=== PATIENT | male | born 1965 | race American Indian/Alaskan Native ===

== ENCOUNTER 2018-08-21 04:20 | Inpatient (IN) | payer SELFPAY ==
[2018-08-21] MEDS ORDERED: PROVENTIL IH ONE ×2 (04:41→05:00)
[2018-08-21] MEDS ORDERED: ATROVENT IH ONE ×2 (04:41→05:00)
[2018-08-21] MEDS ORDERED: BRETHINE ONE (04:42)
[2018-08-21] MEDS ORDERED: BRETHINE SUB-Q ONE (04:44)
--- NOTE | 2018-08-21 04:44 | Emergency Department Report ---
HPI - General Time Seen by Provider: 08/21/18 04:37 - HPI HPI: Room 23 The patient is a 52-year-old male presenting with chief complaint of shortness of breath. The patient has a history of asthma and CHF and states this evening he began feeling short of breath. EMS states patient was found to be hypoxic on arrival with sats in the 60s. Patient was placed on a nonrebreather and his SPO2 increased to 92%. Patient was diaphoretic with diffuse wheezing so he was administered Solu-Medrol 125 mg IV and magnesium sulfate by EMS. Upon arrival to the ED the patient was again diaphoretic, in respiratory extremis and hypoxic in the 60s on room air. Patient was immediately placed on BiPAP administered terbutaline 0.25 mg subcutaneous. Patient's SPO2 increased to 100% . Patient denies chest pain Location: Lungs Duration: [See above] Quality: [See above] Severity: [See above] Modifying factors: [see above] Context: [see above] Mode of transportation: [not driving] ED Past Medical Hx - Past Medical History Hx Hypertension: Yes Hx Congestive Heart Failure: Yes Hx Asthma: Yes - Surgical History Past Surgical History?: No - Family History Family history: no significant - Social History Smoking Status: Unknown if ever smoked ED Review of Systems ROS: Stated complaint: DIFFICULTY IN BREATHING Other details as noted in HPI Comment: Unobtainable due to pts medical conditions Constitutional: diaphoresis Respiratory: shortness of breath, wheezing Cardiovascular: denies: chest pain Physical Exam - Physical Exam Physical Exam: GENERAL: The patient is well-developed well-nourished male grossly diaphoretic and in respiratory extremis SPO2 approximate 60%. [] HEENT: Normocephalic. Atraumatic. Extraocular motions are intact. Patient has moist mucous membranes. NECK: Supple. Trachea midline CHEST/LUNGS: Diffuse tight wheezing, respiratory extremis. Unable to speak in complete sentences HEART/CARDIOVASCULAR: Regular. There is tachycardia. There is no gallop rub or murmur. ABDOMEN: Abdomen is soft, nontender. Patient has normal bowel sounds. There is no abdominal distention. SKIN: There is no rash. There is no edema. The patient is grossly diaphoretic NEURO: The patient is awake, alert, and oriented. The patient is cooperative. The patient is unable to speak in complete sentences MUSCULOSKELETAL:There is no evidence of acute injury. ED Course - Reevaluation(s) Reevaluation #1: 08/21/18 05:07 Patient looking much improved. SPO2 100% on BiPAP. Patient now complaining of some abdominal cramping ED Medical Decision Making - Lab Data Result diagrams: 08/21/18 04:45 08/21/18 04:45 Laboratory Tests 08/21/18 08/21/18 08/21/18 04:45 04:45 04:45 WBC 9.5 RBC 5.05 H Hgb 15.9 H Hct 50.4 H MCV 100 H MCH 32 MCHC 32 RDW 15.2 Lymph % (Auto) 45.7 H [place] % (Auto) 8.6 H Eos % (Auto) 2.3 Baso % (Auto) 1.4 Lymph # 4.4 [place] # 0.8 Eos # 0.2 Baso # 0.1 Seg Neutrophils % 42.0 Seg Neutrophils # 4.0 PT 13.8 INR 1.01 APTT 27.3 Sodium 143 Potassium 4.8 Chloride 101.8 Carbon Dioxide 27 Anion Gap 19 BUN 33 H Creatinine 1.5 Estimated GFR 60 BUN/Creatinine Ratio 22 Glucose 265 H Calcium 9.1 Total Bilirubin 0.60 AST 50 H ALT 38 Alkaline Phosphatase 83 Total Creatine Kinase 156 CK-MB (CK-2) 3.1 CK-MB (CK-2) Rel Index 1.9 Troponin T < 0.010 NT-Pro-B Natriuret Pep 1242 H Total Protein 7.6 Albumin 4.6 Albumin/Globulin Ratio 1.5 - EKG Data -: EKG Interpreted by Me EKG shows normal: sinus rhythm Rate: normal - EKG Data When compared to previous EKG there are: previous EKG unavailable Interpretation: nonspecific ST-T wave frank (T-wave inversion in lead aVL, V2) - Radiology Data Radiology results: report reviewed (chest x-ray), image reviewed (chest x-ray) interpreted by me: Chest [id number] patchy opacities. No pneumothorax [facility] [address] [place] [address] XRay Report Signed Patient: LELO PEREZ MR#: [id number] : 1965 Acct:[id number] Age/Sex: 52 / M ADM Date: 08/21/18 Loc: ED Attending Dr: Ordering Physician: MARTINA ARGUELLO MD Date of Service: 08/21/18 Procedure(s): XR chest 1V ap Accession Number(s): [id number] cc: MARTINA ARGUELLO MD Fluoro Time In Minutes: FINAL REPORT EXAM: XR CHEST 1V AP HISTORY: shortness of breath, hypoxia TECHNIQUE: AP portable view(s) of the chest obtained. PRIORS: None. FINDINGS: No mediastinal shift. Cardiac silhouette is near the upper limit of normal in size. No pneumothorax or effusion. Basilar predominant interstitial prominence and ill-defined opacities. No acute skeletal finding. IMPRESSION: Ill-defined bibasilar opacities and interstitial prominence may be due to edema, infection or atelectasis. Consider PA and lateral chest radiographic follow-up. Transcribed By: MB Dictated By: HEATHER LEO MD Electronically Authenticated By: HEATHER LEO MD Signed Date/Time: 08/21/18510 DD/ 0 TD/TT: 08/21/18510 - Differential Diagnosis acute asthma exacerbation, respiratory failure, CHF exacerbation Critical Care Time: Yes Critical care time in (mins) excluding proc time.: 30 Critical care attestation.: If time is entered above; I have spent that time in minutes in the direct care of this critically ill patient, excluding procedure time. ED Disposition Clinical Impression: Respiratory failure, Hypoxia, Acute asthma exacerbation, Hypertensive urgency Disposition: OP ADMIT IP TO THIS HOSP Is pt being admited?: Yes Does the pt Need Aspirin: Yes Condition: Serious Referrals: PRIMARY CARE, [Primary Care Provider] - 3-5 Days Time of Disposition: 05:43 (hospitalist paged (Dr. Judy Vickers))
[2018-08-21] MEDS ORDERED: APRESOLINE IV ONE (04:45)
[2018-08-21 05:05] LABS: Basophils # (Auto) 0.1 K/mm3 (0.0-0.1); Basophils % (Auto) 1.4 % (0.0-1.8); Eosinophils # (Auto) 0.2 K/mm3 (0.0-0.4); Eosinophils % (Auto) 2.3 % (0.0-4.3); Hematocrit 50.4 % (35.5-45.6); Hemoglobin 15.9 gm/dl (11.8-15.2); Lymphocytes # (Auto) 4.4 K/mm3 (1.2-5.4); Lymphocytes % (Auto) 45.7 % (13.4-35.0); Mean Corpuscular HGB Conc 32 % (32-34); Mean Corpuscular Hemoglobin 32 pg (28-32); Mean Corpuscular Volume 100 fl (84-94); Monocytes # (Auto) 0.8 K/mm3 (0.0-0.8); Monocytes % (Auto) 8.6 % (0.0-7.3); Red Blood Count 5.05 M/mm3 (3.65-5.03); Red Cell Distribution Width 15.2 % (13.2-15.2)
[2018-08-21] MEDS ORDERED: ZOFRAN IV ONE (05:09)
[2018-08-21] MEDS ORDERED: SUBLIMAZE IV ONE (05:09)
--- NOTE | 2018-08-21 05:12 | XRay Report ---
FINAL REPORT EXAM: XR CHEST 1V AP HISTORY: shortness of breath, hypoxia TECHNIQUE: AP portable view(s) of the chest obtained. PRIORS: None. FINDINGS: No mediastinal shift. Cardiac silhouette is near the upper limit of normal in size. No pneumothorax or effusion. Basilar predominant interstitial prominence and ill-defined opacities. No acute skeletal finding. IMPRESSION: Ill-defined bibasilar opacities and interstitial prominence may be due to edema, infection or atelectasis. Consider PA and lateral chest radiographic follow-up.
[2018-08-21] MEDS ORDERED: MORPHINE IV ONE (05:15)
[2018-08-21] MEDS ORDERED: LASIX IV ONE (05:15)
[2018-08-21 05:17] LABS: INR 1.01 (0.87-1.13)
[2018-08-21 05:18] LABS: Partial Thromboplastin Time 27.3 Sec. (24.2-36.6)
[2018-08-21] MEDS ORDERED: BENADRYL ONE (05:28)
[2018-08-21] MEDS ORDERED: BENADRYL IV ONE (05:29)
[2018-08-21 05:34] LABS: Creatine Kinase MB 3.1 ng/mL (0.0-4.0)
[2018-08-21 05:37] LABS: Alanine Aminotransferase 38 units/L (7-56); Albumin 4.6 g/dL (3.9-5); BUN/Creatinine Ratio 22; Blood Urea Nitrogen 33 mg/dL (9-20); Calcium 9.1 mg/dL (8.4-10.2); Hemolysis Index 18
[2018-08-21 05:43] LABS: Platelet Count 195 K/mm3 (140-440)
[2018-08-21] MEDS ORDERED: PROVENTIL IH PRN (06:48)
[2018-08-21] MEDS ORDERED: MOTRIN PO PRN (09:39)
[2018-08-21] MEDS ORDERED: MORPHINE IV PRN (09:39)
[2018-08-21] MEDS ORDERED: ZOFRAN IV PRN (09:39)
[2018-08-21] MEDS ORDERED: SODIUM CHLORIDE FLUSH SYRINGE 10 ML IV PRN (09:39)
[2018-08-21] MEDS ORDERED: DILAUDID IV PRN (09:39)
--- NOTE | 2018-08-21 09:39 | History and Physical Report ---
History of Present Illness Date of examination: 08/21/18 Date of admission: 08/21/18 06:47 Chief complaint: Increasing SOB for one day. History of present illness: GENIE: 52-year-old male presenting with chief complaint of shortness of breath since yesterday. The patient has a history of asthma and CHF and states he began feeling short of breath since yesterday evening. EMS states patient was found to be hypoxic on arrival with sats in the 60s. Patient was placed on a nonrebreather and his SPO2 increased to 92%. Patient was diaphoretic with diffuse wheezing so he was administered Solu-Medrol 125 mg IV and magnesium sulfate by EMS. Upon arrival to the ED the patient was again diaphoretic, in respiratory extremis and hypoxic in the 60s on room air. Patient was immediately placed on BiPAP administered terbutaline 0.25 mg subcutaneous. Patient's SPO2 increased to 100%. Patient denies chest pain.No fever or chills. Past Medical History Hx Hypertension: Yes Hx Congestive Heart Failure: Yes Hx Asthma: Yes Surgical History Past Surgical History?: No Family History Family history: no significant Social History Smoking Status: Unknown if ever smoked Review of Systems ROS: Stated complaint: DIFFICULTY IN BREATHING Other details as noted in HPI Comment: Unobtainable due to pts medical conditions Constitutional: diaphoresis Respiratory: shortness of breath, wheezing Cardiovascular: denies: chest pain 14 point review of systems done---other shin negative. Medications and Allergies Allergies Allergy/AdvReac Type Severity Reaction Status Date / Time No Known Allergies Allergy Unverified 08/21/18 04:41 Home Medications Medication Instructions Recorded Confirmed Last Taken Type Carvedilol 12.5 mg PO BID 08/21/18 08/21/18 Unknown History Furosemide [Lasix TAB] 40 mg PO DAILY 08/21/18 08/21/18 Unknown History Labetalol [Normodyne TAB] 20 mg PO BID 08/21/18 08/21/18 Unknown History Lisinopril [Zestril] 40 mg PO DAILY 08/21/18 08/21/18 Unknown History Prednisone [predniSONE (Marta) ER 20 mg PO DAILY 08/21/18 08/21/18 Unknown History TAB] Active Meds: Active Medications Albuterol (Proventil) 2.5 mg IH Q4HRT PRN PRN Reason: Wheezing Exam - Constitutional Vitals: Temp Pulse Resp BP Pulse Ox 96 H 14 151/73 92 08/21/18 09:01 08/21/18 09:01 08/21/18 09:01 08/21/18 09:01 General appearance: Present: severe distress, well-nourished - EENT Eyes: Present: PERRL ENT: hearing intact, clear oral mucosa - Neck Neck: Present: supple, normal ROM - Respiratory Respiratory effort: normal Respiratory: bilateral: diminished, rales, rhonchi - Cardiovascular Heart rate: 80 Rhythm: regular Heart Sounds: Present: S1 & S2. Absent: rub, click - Extremities Extremities: no ischemia, pulses intact, pulses symmetrical, No edema Peripheral Pulses: within normal limits - Abdominal General gastrointestinal: Present: soft, non-tender, non-distended, normal bowel sounds Male genitourinary: Present: normal - Rectal Rectal Exam: deferred - Integumentary Integumentary: Present: clear, warm, dry - Musculoskeletal Musculoskeletal: gait normal, strength equal bilaterally - Psychiatric Psychiatric: appropriate mood/affect, intact judgment & insight - Neurologic Neurologic: CNII-XII intact, moves all extremities - Allied Health Allied health notes reviewed: nursing Results - Labs CBC & Chem 7: 08/22/18 04:07 08/22/18 04:07 Labs: Laboratory Last Values WBC 9.5 K/mm3 (4.5-11.0) 08/21/18 04:45 RBC 5.05 M/mm3 (3.65-5.03) H 08/21/18 04:45 Hgb 15.9 gm/dl (11.8-15.2) H 08/21/18 04:45 Hct 50.4 % (35.5-45.6) H 08/21/18 04:45 MCV 100 fl (84-94) H 08/21/18 04:45 MCH 32 pg (28-32) 08/21/18 04:45 MCHC 32 % (32-34) 08/21/18 04:45 RDW 15.2 % (13.2-15.2) 08/21/18 04:45 Plt Count 195 K/mm3 (140-440) 08/21/18 04:45 Lymph % (Auto) 45.7 % (13.4-35.0) H 08/21/18 04:45 [place] % (Auto) 8.6 % (0.0-7.3) H 08/21/18 04:45 Eos % (Auto) 2.3 % (0.0-4.3) 08/21/18 04:45 Baso % (Auto) 1.4 % (0.0-1.8) 08/21/18 04:45 Lymph # 4.4 K/mm3 (1.2-5.4) 08/21/18 04:45 [place] # 0.8 K/mm3 (0.0-0.8) 08/21/18 04:45 Eos # 0.2 K/mm3 (0.0-0.4) 08/21/18 04:45 Baso # 0.1 K/mm3 (0.0-0.1) 08/21/18 04:45 Seg Neutrophils % 42.0 % (40.0-70.0) 08/21/18 04:45 Seg Neutrophils # 4.0 K/mm3 (1.8-7.7) 08/21/18 04:45 PT 13.8 Sec. (12.2-14.9) 08/21/18 04:45 INR 1.01 (0.87-1.13) 08/21/18 04:45 APTT 27.3 Sec. (24.2-36.6) 08/21/18 04:45 POC ABG pH 7.270 (7.35-7.45) L 08/21/18 05:44 POC ABG pCO2 55.5 (35-45) H 08/21/18 05:44 POC ABG pO2 345 (80-105) H 08/21/18 05:44 POC ABG HCO3 25.5 08/21/18 05:44 POC ABG Total CO2 27 08/21/18 05:44 POC ABG O2 Sat 100 08/21/18 05:44 POC ABG Base Excess -1 08/21/18 05:44 FiO2 100 % 08/21/18 05:44 Sodium 143 mmol/L (137-145) 08/21/18 04:45 Potassium 4.8 mmol/L (3.6-5.0) 08/21/18 04:45 Chloride 101.8 mmol/L (98-107) 08/21/18 04:45 Carbon Dioxide 27 mmol/L (22-30) 08/21/18 04:45 Anion Gap 19 mmol/L 08/21/18 04:45 BUN 33 mg/dL (9-20) H 08/21/18 04:45 Creatinine 1.5 mg/dL (0.8-1.5) 08/21/18 04:45 Estimated GFR 60 ml/min 08/21/18 04:45 BUN/Creatinine Ratio 22 % 08/21/18 04:45 Glucose 265 mg/dL (75-100) H 08/21/18 04:45 Calcium 9.1 mg/dL (8.4-10.2) 08/21/18 04:45 Total Bilirubin 0.60 mg/dL (0.1-1.2) 08/21/18 04:45 AST 50 units/L (5-40) H 08/21/18 04:45 ALT 38 units/L (7-56) 08/21/18 04:45 Alkaline Phosphatase 83 units/L (35-129) 08/21/18 04:45 Total Creatine Kinase 156 units/L (55-170) 08/21/18 04:45 CK-MB (CK-2) 3.1 ng/mL (0.0-4.0) 08/21/18 04:45 CK-MB (CK-2) Rel Index 1.9 (0-4) 08/21/18 04:45 Troponin T < 0.010 ng/mL (0.00-0.029) 08/21/18 04:45 NT-Pro-B Natriuret Pep 1242 pg/mL (0-900) H 08/21/18 04:45 Total Protein 7.6 g/dL (6.3-8.2) 08/21/18 04:45 Albumin 4.6 g/dL (3.9-5) 08/21/18 04:45 Albumin/Globulin Ratio 1.5 % 08/21/18 04:45 - Imaging and Cardiology EKG: report reviewed (99/min LVH Abnormal T waves ST elevation) Assessment and Plan Advance Directives: Yes (Full code) VTE prophylaxis?: Chemical Plan of care discussed with patient/family: Yes - Patient Problems (1) Respiratory failure with hypoxia Current Visit: Yes Status: Acute Qualifiers: Chronicity: acute Plan to address problem: Sec to Asthma and severe exacerbation IV Solumedrol IV abx and Duonebs RTC. Bipap if necessary. (2) Acute asthma exacerbation Current Visit: Yes Status: Acute Qualifiers: Asthma severity: severe Plan to address problem: As above (3) CHF (congestive heart failure) Current Visit: Yes Status: Acute Qualifiers: Heart failure type: combined systolic and diastolic Heart failure chronicity: acute on chronic Qualified Code(s): I50.43 - Acute on chronic combined systolic (congestive) and diastolic (congestive) heart failure Plan to address problem: Superimposed IV Lasix q12 and Kdur po q12 ECHO ordered (4) HTN (hypertension) Current Visit: Yes Status: Chronic Qualifiers: Hypertension type: essential hypertension Qualified Code(s): I10 - Essential (primary) hypertension Plan to address problem: COnt antihypertensives (5) DVT prophylaxis Current Visit: Yes Status: Acute Plan to address problem: On Lovenox and GI prophylaxis
[2018-08-21] MEDS ORDERED: NORMODYNE PO SCH ×2 (11:00→22:00)
[2018-08-21] MEDS: ZESTRIL PO SCH (11:27)
[2018-08-21] MEDS: LEVAQUIN 750MG/150ML 750 MG/150 ML BAG IV SCH (11:27)
[2018-08-21] MEDS: SOLU-Medrol IV SCH ×2 (11:28→21:45)
[2018-08-21] MEDS: SODIUM CHLORIDE FLUSH SYRINGE 10 ML IV SCH ×2 (11:28→21:51)
[2018-08-21] MEDS: PEPCID PO SCH ×2 (11:28→21:44)
[2018-08-21] MEDS ORDERED: DUONEB *Not for PRN Use IH SCH (12:00)
[2018-08-21] MEDS: K-DUR PO SCH ×2 (14:06→21:44)
[2018-08-21] MEDS: LASIX IV SCH (17:44)
[2018-08-21] MEDS: PERCOCET 5/325 PO PRN (17:46)
[2018-08-21] MEDS: DUONEB *Not for PRN Use IH SCH (20:25)
[2018-08-21] MEDS: NORMODYNE PO SCH (21:44)
[2018-08-22 04:41] LABS: Hematocrit 45.4 % (35.5-45.6); Hemoglobin 14.6 gm/dl (11.8-15.2); Mean Corpuscular HGB Conc 32 % (32-34); Mean Corpuscular Hemoglobin 31 pg (28-32); Mean Corpuscular Volume 97 fl (84-94); Platelet Count 152 K/mm3 (140-440); Red Blood Count 4.69 M/mm3 (3.65-5.03); Red Cell Distribution Width 14.7 % (13.2-15.2)
[2018-08-22 05:00] LABS: Alanine Aminotransferase 28 units/L (7-56); Albumin 4.1 g/dL (3.9-5); BUN/Creatinine Ratio 22; Blood Urea Nitrogen 24 mg/dL (9-20); Calcium 9.2 mg/dL (8.4-10.2); Hemolysis Index 8
[2018-08-22] MEDS: SOLU-Medrol IV SCH ×3 (05:25→21:56)
[2018-08-22] MEDS: LASIX IV SCH ×2 (05:25→17:52)
[2018-08-22] MEDS: TYLENOL PO PRN ×2 (05:39→19:27)
[2018-08-22 06:12] LABS: Basophils % (Manual) 0 % (0.0-1.8); Eosinophils % (Manual) 0 % (0.0-4.3); Total Cells Counted 100
[2018-08-22 06:13] LABS: Large Platelets 1+; Platelet Estimate Consistent w Auto; RBC Morphology Normal
[2018-08-22] MEDS: DUONEB *Not for PRN Use IH SCH ×3 (07:50→20:24)
--- NOTE | 2018-08-22 10:51 | Progress Note ---
Assessment and Plan - Patient Problems (1) Respiratory failure with hypoxia Current Visit: Yes Status: Acute Qualifiers: Chronicity: acute Plan to address problem: Sec to Asthma and severe exacerbation IV Solumedrol IV abx and Duonebs RTC. Bipap if necessary. (2) Acute asthma exacerbation Current Visit: Yes Status: Acute Qualifiers: Asthma severity: severe Plan to address problem: As above (3) CHF (congestive heart failure) Current Visit: Yes Status: Acute Qualifiers: Heart failure type: combined systolic and diastolic Heart failure chronicity: acute on chronic Qualified Code(s): I50.43 - Acute on chronic combined systolic (congestive) and diastolic (congestive) heart failure Plan to address problem: Superimposed IV Lasix q12 and Kdur po q12 ECHO ordered (4) HTN (hypertension) Current Visit: Yes Status: Chronic Qualifiers: Hypertension type: essential hypertension Qualified Code(s): I10 - Essential (primary) hypertension Plan to address problem: COnt antihypertensives (5) Hyperglycemia Current Visit: Yes Status: Acute Plan to address problem: Sec to solumedrol. Hba1c 5.4 no insulin at this time (6) DVT prophylaxis Current Visit: Yes Status: Acute Plan to address problem: On Lovenox and GI prophylaxis Subjective Date of service: 08/22/18 Principal diagnosis: Resp failure,CHF exacerbation,Asthma exacerbation Interval history: Significant improvement since yesterday Objective - Constitutional Vitals: Vital Signs - 12hr 08/22/18 08/22/18 08/22/18 00:54 05:41 07:51 Temperature 97.9 F 97.5 F L Pulse Rate 106 H 98 H Pulse Rate [ 110 H Posterior Bilateral Throughout] Respiratory 18 20 Rate Respiratory 18 Rate [Posterior Bilateral Throughout] Blood Pressure 148/98 144/91 O2 Sat by Pulse 96 95 Oximetry 08/22/18 08:00 Temperature Pulse Rate Pulse Rate [ 112 H Posterior Bilateral Throughout] Respiratory Rate Respiratory 18 Rate [Posterior Bilateral Throughout] Blood Pressure O2 Sat by Pulse Oximetry General appearance: Present: no acute distress, well-nourished - EENT Eyes: PERRL, EOM intact ENT: hearing intact, clear oral mucosa Ears: bilateral: normal - Neck Neck: supple, normal ROM - Respiratory Respiratory effort: normal Respiratory: bilateral: CTA - Breasts Breasts: normal - Cardiovascular Heart rate: 78 Rhythm: regular Heart Sounds: Present: S1 & S2. Absent: gallop, rub Extremities: no ischemia, pulses intact, No edema, normal color, Full ROM - Gastrointestinal General gastrointestinal: Present: soft, non-tender, non-distended, normal bowel sounds - Genitourinary Male genitourinary: normal - Integumentary Integumentary: clear, warm, dry - Musculoskeletal Musculoskeletal: 1, strength equal bilaterally - Neurologic Neurologic: moves all extremities - Psychiatric Psychiatric: memory intact, appropriate mood/affect, intact judgment & insight - Labs CBC & Chem 7: 08/22/18 04:07 08/22/18 04:07 Labs: Abnormal lab results 08/22/18 08/22/18 Range/Units 04:07 04:07 WBC 11.7 H (4.5-11.0) K/mm3 MCV 97 H (84-94) fl Seg Neuts % (Manual) 96.0 H (40.0-70.0) % Lymphocytes % (Manual) 2.0 L (13.4-35.0) % Seg Neutrophils # Man 11.2 H (1.8-7.7) K/mm3 Lymphocytes # (Manual) 0.2 L (1.2-5.4) K/mm3 BUN 24 H (9-20) mg/dL Glucose 158 H (75-100) mg/dL
[2018-08-22] MEDS: LEVAQUIN 750MG/150ML 750 MG/150 ML BAG IV SCH (11:04)
[2018-08-22] MEDS: K-DUR PO SCH ×2 (11:05→21:57)
[2018-08-22] MEDS: PEPCID PO SCH ×2 (11:06→21:57)
[2018-08-22] MEDS: ZESTRIL PO SCH (11:13)
[2018-08-22] MEDS: NORMODYNE PO SCH ×2 (11:14→21:57)
[2018-08-22] MEDS: SODIUM CHLORIDE FLUSH SYRINGE 10 ML IV SCH ×2 (11:16→21:58)
[2018-08-23] MEDS: SOLU-Medrol IV SCH ×2 (04:03→14:11)
[2018-08-23] MEDS: LASIX IV SCH (05:34)
[2018-08-23] MEDS: PERCOCET 5/325 PO PRN (05:39)
[2018-08-23] MEDS: DUONEB *Not for PRN Use IH SCH (07:51)
[2018-08-23] MEDS: PEPCID PO SCH (10:17)
[2018-08-23] MEDS: LEVAQUIN 750MG/150ML 750 MG/150 ML BAG IV SCH (10:17)
[2018-08-23] MEDS: NORMODYNE PO SCH (10:17)
[2018-08-23] MEDS: ZESTRIL PO SCH (10:17)
[2018-08-23] MEDS: SODIUM CHLORIDE FLUSH SYRINGE 10 ML IV SCH (10:18)
[2018-08-23 12:24] VITALS: BP 149/97
--- NOTE | 2018-08-23 12:29 | Discharge Summary ---
Providers - Providers Date of Admission: 08/21/18 06:47 Date of discharge: 08/23/18 Attending physician: TATE ORTIZ Primary care physician: S[employer]IOR [employer] PRO[employer] MANAGER Hospitalization Reason for admission: Respiratory failure with hypoxia, acute asthma exacerbation, acute CHF exac Condition: Stable Hospital course: FINAL DIAGNOSIS -Acute Respiratory failure with hypoxia -Acute asthma exacerbation -Sepsis probably secondary to pneumonia -Acute on chronic systolic heart failure with EF of 45-50% -Hypertensive emergency with blood pressure of 212/111 secondary to medication noncompliance -Tobacco abuse In the ED B, patient received antihypertensives with some improvement in his blood pressure. On admission, he was continued on antihypertensives and placed on CHF protocol as well as IV steroids, nebulizer breathing treatments and IV antibiotic. Subsequently, he improved clinically and he was then deemed stable for discharge with clinic follow-up. On discharge, patient was counseled on tobacco cessation and he requested for nicotine patch for home. Disposition: DC- TO HOME OR SELFCARE Time spent for discharge: 35 minutes including counseling Core Measure Documentation - Palliative Care Palliative Care/ Comfort Measures: Not Applicable - Core Measures Any of the following diagnoses?: heart failure - Heart Failure Discharge Requirements RONAK/ARB for LVSD if EF <40%: Yes Beta marcia at discharge: Yes Exam - Constitutional Vitals: Temp Pulse Resp BP Pulse Ox 98.6 F 98 H 16 149/97 96 08/23/18 12:22 08/23/18 12:22 08/23/18 12:22 08/23/18 12:22 08/23/18 12:22 General appearance: Present: no acute distress, well-nourished - EENT Eyes: Present: PERRL, EOM intact ENT: hearing intact, clear oral mucosa - Neck Neck: Present: supple, normal ROM - Respiratory Respiratory effort: normal Respiratory: bilateral: CTA - Cardiovascular Rhythm: regular Heart Sounds: Present: S1 & S2. Absent: rub, click - Extremities Extremities: pulses symmetrical, No edema Peripheral Pulses: within normal limits - Abdominal General gastrointestinal: Present: soft, non-tender, non-distended, normal bowel sounds - Integumentary Integumentary: Present: clear, warm, dry - Musculoskeletal Musculoskeletal: gait normal, strength equal bilaterally - Psychiatric Psychiatric: appropriate mood/affect, intact judgment & insight - Neurologic Neurologic: CNII-XII intact, moves all extremities Plan Follow up with: PRIMARY CARE, [Primary Care Provider] - 3-5 Days Prescriptions: Carvedilol 25 mg PO BID #60 tablet levoFLOXacin [Levaquin TAB] 750 mg PO QDAY #5 tablet Lisinopril [Zestril] 40 mg PO DAILY #30 tablet Nicotine [Nicotine Patch] 1 each TD DAILY #30 patch.[id number]
[2018-08-23] MEDS ORDERED: DUONEB *Not for PRN Use IH SCH ×2 (20:00→22:00)
== END 2018-08-23 14:59 | disposition home or self-care (01) | DRG 871 ==
LOC: ED 04:20 → 4A 06:47
PROVIDERS: ADMIT Internal Medicine; ATTEND Internal Medicine
PROC: 4A033R1 Measurement of Arterial Saturation, Peripheral, Percutaneous Approach (ICD-10-PCS; principal; 2018-08-21)
PROC: 5A09357 Assistance with Respiratory Ventilation, Less than 24 Consecutive Hours, Continuous Positive Airway Pressure (ICD-10-PCS; 2018-08-21)
DX: A41.9 Sepsis, unspecified organism (principal); I50.43 Acute on chronic combined systolic (congestive) and diastolic (congestive) heart failure; J96.01 Acute respiratory failure with hypoxia; J18.9 Pneumonia, unspecified organism; J45.901 Unspecified asthma with (acute) exacerbation; I16.1 Hypertensive emergency; I11.0 Hypertensive heart disease with heart failure; I16.0 Hypertensive urgency; R73.9 Hyperglycemia, unspecified; Z79.899 Other long term (current) drug therapy; Z91.14 Patient's other noncompliance with medication regimen
CPT/HCPCS: 36415; 71045; 80053; 82550; 82553; 82803; 83036; 83880; 84484; 85007; 85025; 85610; 85730; 90472; 93005; 93010; 93306; 94640; 96374; 96375; 99406; J0360; J1200; J1940; J1956; J2270; J2405; J2930; J3010; J3105

== ENCOUNTER 2019-08-29 14:49 | Inpatient (IN) | payer OTHER ==
[2019-08-29] MEDS ORDERED: IPRATROPIUM 0.02% NEBU 2.5 ML IH ONE (14:57)
[2019-08-29] MEDS ORDERED: ALBUTEROL 2.5 MG/3 ML NEBU IH ONE (14:57)
[2019-08-29] MEDS ORDERED: methylPREDNISolone Sod Succinate 125 MG/2 ML INJ IV ONE (15:02)
[2019-08-29] MEDS ORDERED: cefTRIAXone/NS 1 GM/50 ML 1 GM/50 ML BAG IV ONE (15:02)
[2019-08-29] MEDS ORDERED: ASPIRIN 81 MG TAB CHEW PO ONE (15:02)
[2019-08-29] MEDS ORDERED: IPRATROPIUM/ALBUTEROL SULFATE 3 ML AMPUL.NEB IH ONE ×2 (15:03→21:16)
[2019-08-29] MEDS ORDERED: AZITHROMYCIN 500 MG in SODIUM CHLORIDE 0.9% 250ML 250 ML IV ONE (15:04)
[2019-08-29] MEDS ORDERED: dilTIAZem 25 MG/5 ML INJ IV ONE (15:43)
[2019-08-29] MEDS ORDERED: dilTIAZem 25 MG/5 ML INJ ONE (15:44)
--- NOTE | 2019-08-29 15:52 | XRay Report ---
CHEST 1 VIEW INDICATION: tachycardia. Acute dyspnea and respiratory distress COMPARISON: None FINDINGS: Support devices: None. Heart: Within normal limits. Lungs/Pleura: Mild interstitial edema. No pleural effusion. Additional findings: None. IMPRESSION: 1. Mild interstitial edema. Signer Name: Adalid Verma MD Signed: 08/29/2019 3:47 PM Workstation Name: [id number]
[2019-08-29 15:55] LABS: Basophils # (Auto) 0.1 K/mm3 (0.0-0.1); Basophils % (Auto) 1.7 % (0.0-1.8); Eosinophils # (Auto) 0.1 K/mm3 (0.0-0.4); Hematocrit 42.9 % (35.5-45.6); Hemoglobin 13.9 gm/dl (11.8-15.2); Lymphocytes # (Auto) 1.2 K/mm3 (1.2-5.4); Lymphocytes % (Auto) 13.9 % (13.4-35.0); Mean Corpuscular HGB Conc 33 % (32-34); Mean Corpuscular Volume 98 fl (84-94); Monocytes # (Auto) 0.5 K/mm3 (0.0-0.8); Monocytes % (Auto) 5.6 % (0.0-7.3); Platelet Count 154 K/mm3 (140-440); Red Cell Distribution Width 15.6 % (13.2-15.2)
[2019-08-29] MEDS ORDERED: ACETAMINOPHEN 325 MG TAB PO ONE (15:55)
[2019-08-29 16:29] LABS: Partial Thromboplastin Time 28.6 Sec. (24.2-36.6)
--- NOTE | 2019-08-29 16:50 | Emergency Department Report ---
ED Shortness of Breath HPI - General Chief Complaint: Dyspnea/Respdistress Stated Complaint: DIFFICULTY BREATHING Time Seen by Provider: 08/29/19 15:01 Source: patient, family Mode of arrival: Ambulatory Limitations: Physical Limitation (patient distress) - History of Present Illness MD Complaint: shortness of breath -: Gradual Severity: severe Pain Scale: 10 Consistency: other (worsening dyspnea) Improves With: bronchodilators Worsens With: exertion Known History Of: COPD, congestive heart failure Associated Symptoms: cough, sputum production, other (wheezing) - Related Data Previous Rx's Medication Instructions Recorded Last Taken Type AtorvaSTATin [Lipitor] 40 mg PO QHS #30 tab 10/16/18 Unknown Rx Carvedilol 25 mg PO BID #60 tablet 10/16/18 Unknown Rx DOXYCYCLINE Hyclate [Vibramycin 100 mg PO Q12HR #14 capsule 10/16/18 Unknown Rx CAP] Furosemide [Lasix TAB] 40 mg PO DAILY #30 tablet 10/16/18 Unknown Rx Lisinopril [Zestril] 40 mg PO DAILY #30 tablet 10/16/18 Unknown Rx Nicotine [Habitrol] 14 mg TD DAILY #30 patch 10/16/18 Unknown Rx Potassium Chloride 10 meq PO QDAY #30 capsule.er 10/16/18 Unknown Rx Warfarin [Coumadin] 7.5 mg PO QDAY #14 tablet 10/16/18 Unknown Rx guaiFENesin/DEXTROMETHORPHAN 1 each PO TID PRN #15 capsule 10/16/18 Unknown Rx [Robitussin Ljazk-Aqrgj-Vein Dm] hydrALAZINE [Apresoline TAB] 50 mg PO Q8HR #90 tablet 10/16/18 Unknown Rx predniSONE [Deltasone] 10 mg PO QDAY #16 tab 10/16/18 Unknown Rx Allergies Allergy/AdvReac Type Severity Reaction Status Date / Time No Known Allergies Allergy Unverified 08/21/18 04:41 ED Review of Systems ROS: Stated complaint: DIFFICULTY BREATHING Other details as noted in HPI Comment: Unobtainable due to pts medical conditions (patient distress) ED Past Medical Hx - Past Medical History Previous Medical History?: Yes Hx Hypertension: Yes Hx Congestive Heart Failure: Yes Hx Diabetes: No Hx Asthma: Yes Hx COPD: Yes Additional medical history: AFIB - Surgical History Past Surgical History?: No - Social History Smoking Status: Current Every Day Smoker Substance Use Type: None - Medications Home Medications: Home Medications Medication Instructions Recorded Confirmed Last Taken Type AtorvaSTATin [Lipitor] 40 mg PO QHS #30 tab 10/16/18 Unknown Rx Carvedilol 25 mg PO BID #60 tablet 10/16/18 Unknown Rx DOXYCYCLINE Hyclate [Vibramycin 100 mg PO Q12HR #14 capsule 10/16/18 Unknown Rx CAP] Furosemide [Lasix TAB] 40 mg PO DAILY #30 tablet 10/16/18 Unknown Rx Lisinopril [Zestril] 40 mg PO DAILY #30 tablet 10/16/18 Unknown Rx Nicotine [Habitrol] 14 mg TD DAILY #30 patch 10/16/18 Unknown Rx Potassium Chloride 10 meq PO QDAY #30 capsule.er 10/16/18 Unknown Rx Warfarin [Coumadin] 7.5 mg PO QDAY #14 tablet 10/16/18 Unknown Rx guaiFENesin/DEXTROMETHORPHAN 1 each PO TID PRN #15 capsule 10/16/18 Unknown Rx [Robitussin Lnpgl-Tzisl-Kapy Dm] hydrALAZINE [Apresoline TAB] 50 mg PO Q8HR #90 tablet 10/16/18 Unknown Rx predniSONE [Deltasone] 10 mg PO QDAY #16 tab 10/16/18 Unknown Rx ED Physical Exam - General Limitations: No Limitations - Other Other exam information: GENERAL: Patient in acute distress HEAD: Normocephalic, atraumatic EYES: PERRLA, EOM intact, no scleral icterus, no conjunctival hemorrhage, visual matos and acuity wnl NOSE: No tenderness, discharge, sinus tenderness MOUTH: No erythema, bleeding, exudate HEART: tachycardia irregular irregular, no murmur, S1-S2 are auscultated, no edema, pulses are symmetric LUNGS: Respiratory distress. Bilateral breath sounds, Tachypnea, retractions, wheezing, rales ABDOMEN: Normal bowel sounds, abdomen soft, no tenderness, no rebound, no guarding, no distention, no masses, no CVA tenderness MUSCULOSKELETAL: Normal joint range of motion, no redness, no swelling, no tenderness NEUROLOGIC: GCS 15, Alert and Oriented x3, Cranial nerves intact, normal sensation, normal strength, no cerebellar deficit, NIHSS 0 SKIN: Skin is warm and diaphoretic ED Course Vital Signs 08/29/19 08/29/19 08/29/19 14:50 14:53 15:06 Temperature 98.4 F Pulse Rate 130 H 130 H Pulse Rate [ Bilateral] Respiratory 30 H 30 H 24 Rate Respiratory Rate [Bilateral ] Blood Pressure 218/124 Blood Pressure 202/111 [Left] O2 Sat by Pulse 66 L 66 L 99 Oximetry 08/29/19 08/29/19 08/29/19 15:39 15:44 15:46 Temperature Pulse Rate 119 H 119 H Pulse Rate [ 35 L Bilateral] Respiratory 20 Rate Respiratory 19 Rate [Bilateral ] Blood Pressure 184/94 Blood Pressure 184/94 [Left] O2 Sat by Pulse 99 Oximetry 08/29/19 08/29/19 16:00 18:03 Temperature Pulse Rate 105 H 121 H Pulse Rate [ Bilateral] Respiratory 16 20 Rate Respiratory Rate [Bilateral ] Blood Pressure Blood Pressure 151/71 201/91 [Left] O2 Sat by Pulse 95 96 Oximetry ED Medical Decision Making - Lab Data Result diagrams: 08/29/19 15:26 08/29/19 15:26 Laboratory Results - last 24 hr 08/29/19 08/29/19 08/29/19 15:26 15:26 15:26 WBC 8.3 RBC 4.40 Hgb 13.9 Hct 42.9 MCV 98 H MCH 32 MCHC 33 RDW 15.6 H Plt Count 154 Lymph % (Auto) 13.9 [place] % (Auto) 5.6 Eos % (Auto) 1.0 Baso % (Auto) 1.7 Lymph # 1.2 [place] # 0.5 Eos # 0.1 Baso # 0.1 Seg Neutrophils % 77.8 H Seg Neutrophils # 6.5 PT INR APTT Lactic Acid 3.60 H* Magnesium 2.10 Troponin T < 0.010 NT-Pro-B Natriuret Pep 1693 H 08/29/19 15:26 WBC RBC Hgb Hct MCV MCH MCHC RDW Plt Count Lymph % (Auto) [place] % (Auto) Eos % (Auto) Baso % (Auto) Lymph # [place] # Eos # Baso # Seg Neutrophils % Seg Neutrophils # PT 13.1 INR 1.00 APTT 28.6 Lactic Acid Magnesium Troponin T NT-Pro-B Natriuret Pep - EKG Data When compared to previous EKG there are: changes noted Interpretation: other (A. fib with RVR) - Radiology Data Radiology results: report reviewed - Medical Decision Making Patient comfortable. Reports symptom improvement. Updated with results. Plan admit for further evaluation. Hospitalist updated and accepts admission. Critical Care Time: Yes Critical care time in (mins) excluding proc time.: 42 Critical care attestation.: If time is entered above; I have spent that time in minutes in the direct care of this critically ill patient, excluding procedure time. 42 ED Disposition Clinical Impression: Acute hypoxemic respiratory failure, COPD exacerbation, Atrial fibrillation with rapid ventricular response, Noncompliance with medication regimen CHF exacerbation Qualifiers: Heart failure type: unspecified Qualified Code(s): I50.9 - Heart failure, unspecified Disposition: OP ADMIT IP TO THIS HOSP Is pt being admited?: Yes Condition: Stable Instructions: Chronic Obstructive Pulmonary Disease (ED) Referrals: PRIMARY CAREMD [Primary Care Provider] - 3-5 Days Time of Disposition: 17:38
[2019-08-29 17:30] LABS: Calcium 9.1 mg/dL (8.4-10.2)
[2019-08-29] MEDS ORDERED: FUROSEMIDE 40 MG/4 ML INJ IV ONE (17:36)
[2019-08-29] MEDS ORDERED: ACETAMINOPHEN 325 MG TAB PO PRN ×3 (17:38→20:17)
[2019-08-29] MEDS ORDERED: ONDANSETRON 4 MG/2 ML INJ IV PRN ×3 (17:38→20:17)
[2019-08-29] MEDS ORDERED: ENOXAPARIN 120 MG/0.8 ML INJ SUB-Q ONE (18:00)
[2019-08-29] MEDS ORDERED: hydrALAZINE 20 MG/1 ML INJ ONE (19:14)
[2019-08-29] MEDS ORDERED: hydrALAZINE 20 MG/1 ML INJ IV ONE (19:15)
[2019-08-29] MEDS ORDERED: hydrALAZINE 20 MG/1 ML INJ IV PRN (19:34)
--- NOTE | 2019-08-29 19:47 | History and Physical Report ---
History of Present Illness Date of examination: 08/29/19 Date of admission: 08/29/19 17:39 Chief complaint: Increasing shortness of breath for 3 days History of present illness: 53-year-old -[place] male with history of hypertension, congestive heart failure, hyperlipidemia and nicotine dependence comes in for increasing shortness of breath of 3-4 days duration and uncontrolled hypertension. Patient has not been taking his medications regularly. Also no regular follow-ups. Some palpitations present. No chest pain. Patient has class IV NYHA symptoms. Orthopnea present. No recent travel. Patient also has a history of COPD secondary to smoking. Past Medical History Previous Medical History?: Yes Hypertension: Yes Congestive Heart Failure: Yes Asthma: Yes COPD: Yes Additional medical history: AFIB Surgical History Past Surgical History?: No Social History YSmoking Status: Current Every Day Smoker Substance Use Type: None Family History Htn - Medications Home Medications: Home Medications Medication Instructions Recorded Confirmed Last Taken Type AtorvaSTATin [Lipitor] 40 mg PO QHS #30 tab 10/16/18 Unknown Rx Carvedilol 25 mg PO BID #60 tablet 10/16/18 Unknown Rx DOXYCYCLINE Hyclate [Vibramycin 100 mg PO Q12HR #14 capsule 10/16/18 Unknown Rx CAP] Furosemide [Lasix TAB] 40 mg PO DAILY #30 tablet 10/16/18 Unknown Rx Lisinopril [Zestril] 40 mg PO DAILY #30 tablet 10/16/18 Unknown Rx Nicotine [Habitrol] 14 mg TD DAILY #30 patch 10/16/18 Unknown Rx Potassium Chloride 10 meq PO QDAY #30 capsule.er 10/16/18 Unknown Rx Warfarin [Coumadin] 7.5 mg PO QDAY #14 tablet 10/16/18 Unknown Rx guaiFENesin/DEXTROMETHORPHAN 1 each PO TID PRN #15 capsule 10/16/18 Unknown Rx [Robitussin Dxvzq-Dzhsr-Zgmb Dm] hydrALAZINE [Apresoline TAB] 50 mg PO Q8HR #90 tablet 10/16/18 Unknown Rx predniSONE [Deltasone] 10 mg PO QDAY #16 tab 10/16/18 Unknown Rx Medications and Allergies Allergies Allergy/AdvReac Type Severity Reaction Status Date / Time No Known Allergies Allergy Unverified 08/21/18 04:41 Home Medications Medication Instructions Recorded Confirmed Last Taken Type AtorvaSTATin [Lipitor] 40 mg PO QHS #30 tab 10/16/18 Unknown Rx Carvedilol 25 mg PO BID #60 tablet 10/16/18 Unknown Rx DOXYCYCLINE Hyclate [Vibramycin 100 mg PO Q12HR #14 capsule 10/16/18 Unknown Rx CAP] Furosemide [Lasix TAB] 40 mg PO DAILY #30 tablet 10/16/18 Unknown Rx Lisinopril [Zestril] 40 mg PO DAILY #30 tablet 10/16/18 Unknown Rx Nicotine [Habitrol] 14 mg TD DAILY #30 patch 10/16/18 Unknown Rx Potassium Chloride 10 meq PO QDAY #30 capsule.er 10/16/18 Unknown Rx Warfarin [Coumadin] 7.5 mg PO QDAY #14 tablet 10/16/18 Unknown Rx guaiFENesin/DEXTROMETHORPHAN 1 each PO TID PRN #15 capsule 10/16/18 Unknown Rx [Robitussin Izqpj-Vipol-Fxqs Dm] hydrALAZINE [Apresoline TAB] 50 mg PO Q8HR #90 tablet 10/16/18 Unknown Rx predniSONE [Deltasone] 10 mg PO QDAY #16 tab 10/16/18 Unknown Rx Active Meds: Active Medications Acetaminophen (Tylenol) 650 mg PO Q4H PRN PRN Reason: Pain MILD(1-3)/Fever >100.5/GARCIA Hydralazine HCl (Apresoline) 10 mg IV Q2H PRN PRN Reason: Blood Pressure Nicardipine HCl 50 mg/ Sodium (Chloride) 250 mls @ 25 mls/hr IV TITR REENA; Protocol Ondansetron HCl (Zofran) 4 mg IV Q8H PRN PRN Reason: Nausea And Vomiting Sodium Chloride (Sodium Chloride Flush Syringe 10 Ml) 10 ml IV BID REENA Sodium Chloride (Sodium Chloride Flush Syringe 10 Ml) 10 ml IV PRN PRN PRN Reason: LINE FLUSH Review of Systems All systems: negative Ears, nose, mouth and throat: no ear pain, no ear discharge, no tinnitis, no decreased hearing, no nose pain, no nasal congestion Cardiovascular: edema, shortness of breath, dyspnea on exertion, paroxysmal nocturnal dyspnea, high blood pressure Respiratory: dyspnea on exertion Gastrointestinal: no abdominal pain, no nausea, no vomiting, no diarrhea, no constipation, no change in bowel habits, no hematemesis, no coffee ground emesis Genitourinary Male: no dysuria, no hematuria, no flank pain, no discharge, no urinary frequency, no urinary hesitancy, no nocturia, no incontinence, no erectile dysfunction, no genital pain Rectal: no pain Musculoskeletal: no neck stiffness, no neck pain, no shooting arm pain, no arm numbness/tingling, no low back pain, no shooting leg pain, no leg numbness/tingling, no redness of joints Integumentary: no rash, no pruritis, no redness, no sores, no wounds, no jaundice, no boils, no blisters Neurological: no syncope, no tremors Psychiatric: no anxiety, no memory loss, no change in sleep habits, no sleep disturbances, no insomnia, no hypersomnia, no change in appetite, no change in libido, no suicidal ideation, no disorientation, no hallucinations Endocrine: no cold intolerance, no heat intolerance, no polyphagia, no excessive thirst, no polydipsia, no polyuria, no nocturia, no excessive sweating, no flushing, no weight change Hematologic/Lymphatic: no easy bruising, no easy bleeding Allergic/Immunologic: no urticaria, no allergic rhinitis, no wheezing Exam - Constitutional Vitals: Temp Pulse Resp BP Pulse Ox 98.4 F 104 H 18 230/134 98 08/29/19 14:53 08/29/19 19:24 08/29/19 19:24 08/29/19 19:24 08/29/19 19:24 General appearance: Present: mild distress, well-nourished - EENT Eyes: Present: PERRL ENT: hearing intact, clear oral mucosa - Neck Neck: Present: supple, normal ROM - Respiratory Respiratory effort: normal Respiratory: bilateral: CTA - Cardiovascular Heart rate: 129 Rhythm: irregularly irregular Heart Sounds: Present: S1 & S2. Absent: rub, click - Extremities Extremities: no ischemia, pulses intact, pulses symmetrical, No edema Peripheral Pulses: within normal limits - Abdominal General gastrointestinal: Present: soft, non-tender, non-distended, normal bowel sounds Male genitourinary: Present: normal - Rectal Rectal Exam: deferred - Integumentary Integumentary: Present: clear, warm, dry - Musculoskeletal Musculoskeletal: gait normal, strength equal bilaterally - Psychiatric Psychiatric: appropriate mood/affect, intact judgment & insight - Neurologic Neurologic: CNII-XII intact, moves all extremities - Allied Health Allied health notes reviewed: nursing, case management Results - Labs CBC & Chem 7: 08/29/19 15:26 08/29/19 15:26 Labs: Laboratory Last Values WBC 8.3 K/mm3 (4.5-11.0) 08/29/19 15: RBC 4.40 M/mm3 (3.65-5.03) 08/29/19 15: Hgb 13.9 gm/dl (11.8-15.2) 08/29/19 15: Hct 42.9 % (35.5-45.6) 08/29/19 15: MCV 98 fl (84-94) H 08/29/19 15: MCH 32 pg (28-32) 08/29/19 15: MCHC 33 % (32-34) 08/29/19 15: RDW 15.6 % (13.2-15.2) H 08/29/19 15: Plt Count 154 K/mm3 (140-440) 08/29/19 15:26 Lymph % (Auto) 13.9 % (13.4-35.0) 08/29/19 15:26 [place] % (Auto) 5.6 % (0.0-7.3) 08/29/19 15: Eos % (Auto) 1.0 % (0.0-4.3) 08/29/19 15: Baso % (Auto) 1.7 % (0.0-1.8) 08/29/19 15: Lymph # 1.2 K/mm3 (1.2-5.4) 08/29/19 15: [place] # 0.5 K/mm3 (0.0-0.8) 08/29/19 15: Eos # 0.1 K/mm3 (0.0-0.4) 08/29/19 15: Baso # 0.1 K/mm3 (0.0-0.1) 08/29/19 15:26 Seg Neutrophils % 77.8 % (40.0-70.0) H 08/29/19 15: Seg Neutrophils # 6.5 K/mm3 (1.8-7.7) 08/29/19 15:26 PT 13.1 Sec. (12.2-14.9) 08/29/19 15:26 INR 1.00 (0.87-1.13) 08/29/19 15:26 APTT 28.6 Sec. (24.2-36.6) 08/29/19 15:26 Sodium 144 mmol/L (137-145) 08/29/19 15:26 Potassium 4.2 mmol/L (3.6-5.0) 08/29/19 15:26 Chloride 108.2 mmol/L (98-107) H 08/29/19 15:26 Carbon Dioxide 17 mmol/L (22-30) L 08/29/19 15:26 Anion Gap 23 mmol/L 08/29/19 15:26 BUN 16 mg/dL (9-20) 08/29/19 15:26 Creatinine 1.6 mg/dL (0.8-1.5) H 08/29/19 15:26 Estimated GFR 55 ml/min 08/29/19 15:26 BUN/Creatinine Ratio 10 % 08/29/19 15:26 Glucose 154 mg/dL (75-100) H 08/29/19 15:26 Lactic Acid 1.50 mmol/L (0.7-2.0) 08/29/19 16:49 Calcium 9.1 mg/dL (8.4-10.2) 08/29/19 15:26 Magnesium 2.10 mg/dL (1.7-2.3) 08/29/19 15:26 Troponin T < 0.010 ng/mL (0.00-0.029) 08/29/19 15:26 NT-Pro-B Natriuret Pep 1693 pg/mL (0-900) H 08/29/19 15:26 Short CBC 08/29/19 Range/Units 15:26 WBC 8.3 (4.5-11.0) K/mm3 Hgb 13.9 (11.8-15.2) gm/dl Hct 42.9 (35.5-45.6) % Plt Count 154 (140-440) K/mm3 BMP 08/29/19 15:26 Sodium 144 Potassium 4.2 Chloride 108.2 H Carbon Dioxide 17 L BUN 16 Creatinine 1.6 H Glucose 154 H Calcium 9.1 Cardiac Enzymes 08/29/19 Range/Units 15:26 Troponin T < 0.010 (0.00-0.029) ng/mL - Imaging and Cardiology EKG: report reviewed (atrial fibrillation, heart rate of 1 28/m ventricular premature complexes LVH by voltage criteria) Chest x-ray: report reviewed (mild interstitial edema) Assessment and Plan Assessment and plan: Critical care time 30 minutes Advance Directives: Yes (full code) VTE prophylaxis?: Chemical Plan of care discussed with patient/family: Yes - Patient Problems (1) Hypertensive emergency Current Visit: Yes Status: Acute Plan to address problem: Blood pressure 240/140 IV hydralazine and every 2 hours initiated but could not be controlled Cardene drip started Also his home antihypertensive started which includes hydralazine losartan amlodipine and Coreg Patient has history of noncompliance Patient counseled about compliance (2) Acute exacerbation of CHF (congestive heart failure) Current Visit: Yes Status: Acute Qualifiers: Heart failure type: diastolic Qualified Code(s): I50.33 - Acute on chronic diastolic (congestive) heart failure Plan to address problem: Patient initiated on IV Lasix 40 mg every 12 Echocardiogram ordered for ejection fraction and valve function Cardiology consult requested by Dr. Bryan who was economics consultant (3) Atrial fibrillation with rapid ventricular response Current Visit: Yes Status: Acute Plan to address problem: Patient initiated on IV Cardizem at 5 mg per hour (4) COPD (chronic obstructive pulmonary disease) Current Visit: Yes Status: Chronic Qualifiers: COPD type: unspecified COPD Qualified Code(s): J44.9 - Chronic obstructive pulmonary disease, unspecified Plan to address problem: Continue duo nebs No exacerbation Patient counseled to stop smoking (5) Nicotine dependence Current Visit: Yes Status: Chronic Qualifiers: Nicotine product type: cigarettes Plan to address problem: Patient counseled about stopping smoking and nicoderm patch initiated (6) DVT prophylaxis Current Visit: No Status: Acute Plan to address problem: On Lovenox and GI prophylaxis
[2019-08-29] MEDS: HYDROmorphone 1 MG/1 ML INJ IV PRN ×2 (20:10→23:20)
[2019-08-29] MEDS: niCARdipine 50 MG in SODIUM CHLORIDE 0.9% 250ML 230 ML IV SCH (20:17)
[2019-08-29] MEDS ORDERED: HYDROmorphone 1 MG/1 ML INJ ONE ×2 (20:24→23:02)
[2019-08-29] MEDS: IPRATROPIUM/ALBUTEROL SULFATE 3 ML AMPUL.NEB IH SCH (20:50)
[2019-08-29] MEDS: LISINOPRIL 40 MG TAB PO SCH (21:18)
[2019-08-29] MEDS: WARFARIN 7.5 MG TAB PO SCH (21:18)
[2019-08-29] MEDS: NICOTINE 14 MG/24 HR PATCH TD SCH (21:18)
[2019-08-29] MEDS ORDERED: oxyCODONE /ACETAMINOPHEN 5-325MG TAB ONE (21:23)
[2019-08-29] MEDS: oxyCODONE /ACETAMINOPHEN 5-325MG TAB PO PRN (21:24)
[2019-08-29] MEDS ORDERED: dilTIAZem/D5W 100 MG/100 ML BAG IV SCH (22:00)
[2019-08-29] MEDS ORDERED: FAMOTIDINE 20 MG TAB ONE (22:21)
[2019-08-29] MEDS ORDERED: POTASSIUM CHLORIDE ER 20 MEQ TAB PO ONE (22:22)
[2019-08-29] MEDS ORDERED: CARVEDILOL 25 MG TAB ONE (22:22)
[2019-08-29] MEDS ORDERED: hydrALAZINE 25 MG TAB ONE (22:24)
[2019-08-29] MEDS: FAMOTIDINE 20 MG TAB PO SCH (22:28)
[2019-08-29] MEDS: POTASSIUM CHLORIDE ER 20 MEQ TAB PO SCH (22:28)
[2019-08-29] MEDS: CARVEDILOL 25 MG TAB PO SCH (22:28)
[2019-08-29] MEDS: hydrALAZINE 25 MG TAB PO SCH (22:29)
[2019-08-30] MEDS: niCARdipine 50 MG in SODIUM CHLORIDE 0.9% 250ML 230 ML IV SCH ×3 (02:01→12:28)
[2019-08-30 05:45] LABS: Hematocrit 40.5 % (35.5-45.6); Hemoglobin 13.4 gm/dl (11.8-15.2); Mean Corpuscular HGB Conc 33 % (32-34); Mean Corpuscular Volume 95 fl (84-94); Platelet Count 131 K/mm3 (140-440); Red Blood Count 4.24 M/mm3 (3.65-5.03); Red Cell Distribution Width 15.5 % (13.2-15.2)
[2019-08-30 05:59] LABS: INR 1.12 (0.87-1.13)
[2019-08-30] MEDS ORDERED: FUROSEMIDE 40 MG/4 ML INJ IV SCH (06:00)
[2019-08-30 06:08] LABS: Alanine Aminotransferase 15 units/L (7-56); Albumin 4.3 g/dL (3.9-5); BUN/Creatinine Ratio 16; Blood Urea Nitrogen 21 mg/dL (9-20); Calcium 9.6 mg/dL (8.4-10.2); Hemolysis Index 3
[2019-08-30] MEDS ORDERED: FUROSEMIDE 40 MG/4 ML INJ ONE (06:54)
[2019-08-30] MEDS ORDERED: hydrALAZINE 25 MG TAB ONE ×2 (06:55→13:24)
[2019-08-30] MEDS: hydrALAZINE 25 MG TAB PO SCH ×3 (06:58→22:46)
[2019-08-30] MEDS: FUROSEMIDE 40 MG/4 ML INJ IV SCH ×2 (06:59→18:47)
[2019-08-30 07:21] LABS: Anisocytosis 1+; Eosinophils % (Manual) 0 % (0.0-4.3); Macrocytosis Few; Ovalocytes Few; Total Cells Counted 100
[2019-08-30 07:22] LABS: Large Platelets Few; Platelet Estimate Consistent w Auto; Stomatocytes Rare
[2019-08-30] MEDS ORDERED: HYDROmorphone 1 MG/1 ML INJ ONE ×2 (07:53→15:32)
[2019-08-30] MEDS: HYDROmorphone 1 MG/1 ML INJ IV PRN ×2 (07:56→15:34)
--- NOTE | 2019-08-30 08:46 | Progress Note ---
Assessment and Plan Assessment and plan: Patient is a 53-year-old -[place] man with history of afib/aflutter s/p ablation, hypertension, congestive heart failure, hyperlipidemia and nicotine dependence comes in for increasing shortness of breath of 3-4 days duration and uncontrolled hypertension. Patient has not been taking his medications regularly. Also no regular follow-ups. Some palpitations present. No chest pain. Patient has class IV NYHA symptoms. Orthopnea present. No recent travel. Patient also has a history of COPD secondary to smoking. 08/21/2018 TTE with est EF 45-50%, mild MR (1) Hypertensive emergency Current Visit: Yes Status: Acute Plan to address problem: Blood pressure was 240/140 IV hydralazine and every 2 hours initiated but could not be controlled, so Cardene drip started Also his home antihypertensive started which includes hydralazine losartan amlodipine and Coreg Patient has history of noncompliance Patient counseled about compliance (2) Acute exacerbation of CHF (congestive heart failure) Current Visit: Yes Status: Acute Qualifiers: Heart failure type: diastolic Qualified Code(s): I50.33 - Acute on chronic systolic (congestive) heart failure Plan to address problem: Patient initiated on IV Lasix 40 mg every 12 Echocardiogram ordered for ejection fraction and valve function Cardiology consult requested by Dr. Bryan who was closer on (3) Atrial fibrillation with rapid ventricular response Current Visit: Yes Status: Acute Plan to address problem: Patient initiated on IV Cardizem at 5 mg per hour Cardiology to determine A/C (4) COPD (chronic obstructive pulmonary disease) Current Visit: Yes Status: Chronic Qualifiers: COPD type: unspecified COPD Qualified Code(s): J44.9 - Chronic obstructive pulmonary disease, unspecified Plan to address problem: Continue duo nebs No exacerbation Patient counseled to stop smoking (5) Nicotine dependence Current Visit: Yes Status: Chronic Qualifiers: Nicotine product type: cigarettes Plan to address problem: Patient counseled about stopping smoking and nicoderm patch initiated (6) DVT prophylaxis Current Visit: No Status: Acute Plan to address problem: On Lovenox and GI prophylaxis History Interval history: Patient was seen and examined. Follow-up on current diagnosis of CHF, malignant hypertension. No overnight events reported to me. Patient denies any chest pain, nausea/vomiting or severe headaches. Imaging, nursing note, chart, labs and old chart reviewed. Discussed with patient. Hospitalist Physical - Physical exam Narrative exam: Gen: WDWN, NAD, Awake, Alert, Orientated HEENT: NCAT, EOMI, PERRL, OP Clear Neck: supple, no adenopathy, no thyromegaly, no JVD CVS/Heart: irregular irregular normal S1S2, pulses present bilaterally Chest/Lungs: diminished bs bilaterally, Symmetrical chest expansion, good air entry bilaterally GI/Abdomen: soft, NTND, good bowel sounds, no guarding or rebound /Bladder: no suprapubic tenderness, no CVA or paraspinal tenderness Extermity/Skin: no c/c/e, no obvious rash MSK: FROM x 4 Neuro: CN 2-12 grossly intact, no new focal deficits Psych: calm - Constitutional Vitals: Temp Pulse Resp BP Pulse Ox 98.4 F 85 14 142/69 94 08/29/19 14:53 08/30/19 08:15 08/30/19 08:15 08/30/19 08:15 08/30/19 08:15 General appearance: Present: well-nourished Results - Labs CBC & Chem 7: 08/30/19 05:34 08/30/19 05:34 Labs: Laboratory Last Values WBC 7.5 K/mm3 (4.5-11.0) 08/30/19 05:34 RBC 4.24 M/mm3 (3.65-5.03) 08/30/19 05:34 Hgb 13.4 gm/dl (11.8-15.2) 08/30/19 05:34 Hct 40.5 % (35.5-45.6) 08/30/19 05:34 MCV 95 fl (84-94) H 08/30/19 05:34 MCH 32 pg (28-32) 08/30/19 05:34 MCHC 33 % (32-34) 08/30/19 05:34 RDW 15.5 % (13.2-15.2) H 08/30/19 05:34 Plt Count 131 K/mm3 (140-440) L 08/30/19 05:34 Lymph % (Auto) 13.9 % (13.4-35.0) 08/29/19 15:26 Simpson % (Auto) 5.6 % (0.0-7.3) 08/29/19 15:26 Eos % (Auto) 1.0 % (0.0-4.3) 08/29/19 15:26 Baso % (Auto) 1.7 % (0.0-1.8) 08/29/19 15:26 Lymph # 1.2 K/mm3 (1.2-5.4) 08/29/19 15:26 Simpson # 0.5 K/mm3 (0.0-0.8) 08/29/19 15:26 Eos # 0.1 K/mm3 (0.0-0.4) 08/29/19 15:26 Baso # 0.1 K/mm3 (0.0-0.1) 08/29/19 15:26 Add Manual Diff Complete 08/30/19 05:34 Total Counted 100 08/30/19 05:34 Seg Neutrophils % Linoleum Installer 08/30/19 05:34 Seg Neuts % (Manual) 89.0 % (40.0-70.0) H 08/30/19 05:34 Band Neutrophils % 0 % 08/30/19 05:34 Lymphocytes % (Manual) 8.0 % (13.4-35.0) L 08/30/19 05:34 Reactive Lymphs % (Man) 0 % 08/30/19 05:34 Monocytes % (Manual) 2.0 % (0.0-7.3) 08/30/19 05:34 Eosinophils % (Manual) 0 % (0.0-4.3) 08/30/19 05:34 Basophils % (Manual) 1.0 % (0.0-1.8) 08/30/19 05:34 Metamyelocytes % 0 % 08/30/19 05:34 Myelocytes % 0 % 08/30/19 05:34 Promyelocytes % 0 % 08/30/19 05:34 Blast Cells % 0 % 08/30/19 05:34 Nucleated RBC % Not Reportable 08/30/19 05:34 Seg Neutrophils # 6.5 K/mm3 (1.8-7.7) 08/29/19 15:26 Seg Neutrophils # Man 6.7 K/mm3 (1.8-7.7) 08/30/19 05:34 Band Neutrophils # 0.0 K/mm3 08/30/19 05:34 Lymphocytes # (Manual) 0.6 K/mm3 (1.2-5.4) L 08/30/19 05:34 Abs React Lymphs (Man) 0.0 K/mm3 08/30/19 05:34 Monocytes # (Manual) 0.2 K/mm3 (0.0-0.8) 08/30/19 05:34 Eosinophils # (Manual) 0.0 K/mm3 (0.0-0.4) 08/30/19 05:34 Basophils # (Manual) 0.1 K/mm3 (0.0-0.1) 08/30/19 05:34 Metamyelocytes # 0.0 K/mm3 08/30/19 05:34 Myelocytes # 0.0 K/mm3 08/30/19 05:34 Promyelocytes # 0.0 K/mm3 08/30/19 05:34 Blast Cells # 0.0 K/mm3 08/30/19 05:34 WBC Morphology Not Reportable 08/30/19 05:34 Hypersegmented Neuts Not Reportable 08/30/19 05:34 Hyposegmented Neuts Not Reportable 08/30/19 05:34 Hypogranular Neuts Not Reportable 08/30/19 05:34 Smudge Cells Not Reportable 08/30/19 05:34 Toxic Granulation Not Reportable 08/30/19 05:34 Toxic Vacuolation Not Reportable 08/30/19 05:34 Dohle Bodies Not Reportable 08/30/19 05:34 Pelger-Huet Anomaly Not Reportable 08/30/19 05:34 Kyara Rods Not Reportable 08/30/19 05:34 Platelet Estimate Consistent w auto 08/30/19 05:34 Clumped Platelets Not Reportable 08/30/19 05:34 Plt Clumps, EDTA Not Reportable 08/30/19 05:34 Large Platelets Few 08/30/19 05:34 Giant Platelets Not Reportable 08/30/19 05:34 Platelet Satelliting Not Reportable 08/30/19 05:34 Plt Morphology Comment Not Reportable 08/30/19 05:34 RBC Morphology Not Reportable 08/30/19 05:34 Dimorphic RBCs Not Reportable 08/30/19 05:34 Polychromasia Not Reportable 08/30/19 05:34 Hypochromasia Not Reportable 08/30/19 05:34 Poikilocytosis Not Reportable 08/30/19 05:34 Anisocytosis 1+ 08/30/19 05:34 Microcytosis Few 08/30/19 05:34 Macrocytosis Few 08/30/19 05:34 Spherocytes Not Reportable 08/30/19 05:34 Pappenheimer Bodies Not Reportable 08/30/19 05:34 Sickle Cells Not Reportable 08/30/19 05:34 Target Cells Not Reportable 08/30/19 05:34 Tear Drop Cells Not Reportable 08/30/19 05:34 Ovalocytes Few 08/30/19 05:34 Stomatocytes Rare 08/30/19 05:34 Helmet Cells Not Reportable 08/30/19 05:34 Dunaway-Currie Bodies Not Reportable 08/30/19 05:34 Bayard Rings Not Reportable 08/30/19 05:34 Kayenta Cells Not Reportable 08/30/19 05:34 Bite Cells Not Reportable 08/30/19 05:34 Crenated Cell Not Reportable 08/30/19 05:34 Elliptocytes Not Reportable 08/30/19 05:34 Acanthocytes (Spur) Not Reportable 08/30/19 05:34 Rouleaux Not Reportable 08/30/19 05:34 Hemoglobin C Crystals Not Reportable 08/30/19 05:34 Schistocytes Not Reportable 08/30/19 05:34 Malaria parasites Not Reportable 08/30/19 05:34 Aman Bodies Not Reportable 08/30/19 05:34 Hem Pathologist Commnt No 08/30/19 05:34 PT 14.3 Sec. (12.2-14.9) 08/30/19 05:34 INR 1.12 (0.87-1.13) 08/30/19 05:34 APTT 28.6 Sec. (24.2-36.6) 08/29/19 15:26 Sodium 144 mmol/L (137-145) 08/30/19 05:34 Potassium 4.3 mmol/L (3.6-5.0) 08/30/19 05:34 Chloride 106.5 mmol/L (98-107) 08/30/19 05:34 Carbon Dioxide 24 mmol/L (22-30) D 08/30/19 05:34 Anion Gap 18 mmol/L 08/30/19 05:34 BUN 21 mg/dL (9-20) H 08/30/19 05:34 Creatinine 1.3 mg/dL (0.8-1.5) 08/30/19 05:34 Estimated GFR > 60 ml/min 08/30/19 05:34 BUN/Creatinine Ratio 16 % 08/30/19 05:34 Glucose 144 mg/dL (75-100) H 08/30/19 05:34 Hemoglobin A1c 5.2 % (4-6) 08/29/19 15:26 Lactic Acid 1.50 mmol/L (0.7-2.0) 08/29/19 16:49 Calcium 9.6 mg/dL (8.4-10.2) 08/30/19 05:34 Magnesium 2.10 mg/dL (1.7-2.3) 08/29/19 15:26 Total Bilirubin 0.60 mg/dL (0.1-1.2) 08/30/19 05:34 AST 19 units/L (5-40) 08/30/19 05:34 ALT 15 units/L (7-56) 08/30/19 05:34 Alkaline Phosphatase 73 units/L (35-129) 08/30/19 05:34 Troponin T < 0.010 ng/mL (0.00-0.029) 08/29/19 15:26 NT-Pro-B Natriuret Pep 1693 pg/mL (0-900) H 08/29/19 15:26 Total Protein 7.6 g/dL (6.3-8.2) 08/30/19 05:34 Albumin 4.3 g/dL (3.9-5) 08/30/19 05:34 Albumin/Globulin Ratio 1.3 % 08/30/19 05:34 Active Medications - Current Medications Current Medications: Generic Name Dose Route Start Last Admin Trade Name Freq PRN Reason Stop Dose Admin Acetaminophen 650 mg 08/29/19 19:54 Tylenol PO Q4H PRN Pain MILD(1-3)/Fever >100.5/GARCIA Albuterol/Ipratropium 1 ampul 08/29/19 20:00 08/29/19 20:50 Duoneb *Not For Prn Use* IH 1 ampul QIDRT REENA Administration Atorvastatin Calcium 40 mg 08/29/19 22:00 08/29/19 22:27 Lipitor PO 40 mg QHS REENA Administration Carvedilol 25 mg 08/29/19 22:00 08/29/19 22:28 Coreg PO 25 mg BID REENA Administration Famotidine 20 mg 08/29/19 22:00 08/29/19 22:28 Pepcid PO 20 mg BID REENA Administration Furosemide 40 mg 08/30/19 06:00 08/30/19 06:59 Lasix IV 40 mg 0600,1800 REENA Administration Hydralazine HCl 10 mg 08/29/19 19:34 Apresoline IV Q2H PRN Blood Pressure Hydralazine HCl 50 mg 08/29/19 22:00 08/30/19 06:58 Apresoline PO 50 mg Q8HR REENA Administration Hydromorphone HCl 1 mg 08/29/19 19:54 08/30/19 07:56 Dilaudid IV 1 mg Q3H PRN Administration Pain , Severe (7-10) Nicardipine HCl 50 mg/ Sodium 250 mls @ 25 mls/hr 08/29/19 18:00 08/30/19 07:43 Chloride IV 12.5 mg/hr TITR REENA 62.5 mls/hr Administration Protocol 5 MG/HR Diltiazem HCl 100 mg in 100 mls @ 5 mls/hr 08/29/19 22:00 08/29/19 23:25 Cardizem/D5w 100mg/100ml IV 0 mg/hr TITR REENA 0 mls/hr Titration Protocol 5 MG/HR Lisinopril 40 mg 08/29/19 21:00 08/29/19 21:18 Zestril PO 40 mg DAILY REENA Administration Nicotine 14 mg 08/29/19 21:00 08/29/19 21:18 Habitrol TD 14 mg DAILY REENA Administration Ondansetron HCl 4 mg 08/29/19 20:17 Zofran IV Q8H PRN Nausea And Vomiting Oxycodone/Acetaminophen 1 tab 08/29/19 19:54 08/29/19 21:24 Percocet 5/325 PO 1 tab Q6H PRN Administration Pain, Moderate (4-6) Potassium Chloride 20 meq 08/29/19 22:00 08/29/19 22:28 K-Dur PO 20 meq BID REENA Administration Sodium Chloride 10 ml 08/29/19 22:00 08/29/19 22:03 Sodium Chloride Flush Syringe 10 Ml IV 10 ml BID REENA Administration Sodium Chloride 10 ml 08/29/19 19:54 Sodium Chloride Flush Syringe 10 Ml IV PRN PRN LINE FLUSH Warfarin Sodium 7.5 mg 08/29/19 21:00 08/29/19 21:18 Coumadin PO 7.5 mg DAILY@1700 REENA Administration Protocol
[2019-08-30] MEDS ORDERED: FAMOTIDINE 20 MG TAB ONE (09:46)
[2019-08-30] MEDS ORDERED: POTASSIUM CHLORIDE ER 20 MEQ TAB PO ONE (09:46)
[2019-08-30] MEDS ORDERED: CARVEDILOL 25 MG TAB ONE (09:47)
[2019-08-30] MEDS ORDERED: hydrALAZINE 20 MG/1 ML INJ ONE (09:48)
[2019-08-30] MEDS: CARVEDILOL 25 MG TAB PO SCH ×2 (09:50→22:47)
[2019-08-30] MEDS: FAMOTIDINE 20 MG TAB PO SCH ×2 (09:51→22:48)
[2019-08-30] MEDS: POTASSIUM CHLORIDE ER 20 MEQ TAB PO SCH ×2 (09:51→22:48)
[2019-08-30] MEDS ORDERED: IPRATROPIUM/ALBUTEROL SULFATE 3 ML AMPUL.NEB IH ONE ×3 (10:08→17:44)
[2019-08-30] MEDS: NICOTINE 14 MG/24 HR PATCH TD SCH (10:44)
[2019-08-30] MEDS: LISINOPRIL 40 MG TAB PO SCH (10:45)
[2019-08-30] MEDS: IPRATROPIUM/ALBUTEROL SULFATE 3 ML AMPUL.NEB IH SCH ×4 (10:52→21:17)
--- NOTE | 2019-08-30 12:11 | Consultation ---
History of Present Illness Consult date: 08/30/19 Consult reason: congestive heart failure History of present illness: Patient presented with complaints of shortness of breath and acute hypoxic r espiratory failure with reports O2 saturation of 66%. In addition, patient was noted hypertensive with a systolic blood pressure of 247 on presentation. He is currently on intravenous Cardene drip. Patient denies chest pain and palpitations. A chest xray reports no evidence of interstitial edema. An EKG shows rapid atrial fibrillation, rate 129. Patient does not have a primary care physician but reports he takes carvedilol, lisinopril and furosemide which was prescribed from [facility] a few weeks ago. His latest echocardiogram done at this hospital a year ago, reports a mildly decreased LVEF, 45-50%. Patient has a history of nonischemic cardiomyopathy and atrial fibrillation with prior ablation therapy. An ECG done a year ago shows the patient to be in atrial fibrillation. Patient was recommended oral anticoagulation with warfarin but patient reports he quit taking due to inability to have INR checks. Patient also has a history of hypertension and continues to smoke. Medications and Allergies Allergies Allergy/AdvReac Type Severity Reaction Status Date / Time No Known Allergies Allergy Unverified 08/21/18 04:41 Home Medications Medication Instructions Recorded Confirmed Last Taken Type Carvedilol 25 mg PO BID #60 tablet 10/16/18 08/29/19 Unknown Rx Furosemide [Lasix TAB] 40 mg PO DAILY #30 tablet 10/16/18 08/29/19 Unknown Rx Lisinopril [Zestril] 40 mg PO DAILY #30 tablet 10/16/18 08/29/19 Unknown Rx predniSONE [Deltasone] 10 mg PO QDAY #16 tab 10/16/18 08/29/19 Unknown Rx Active Meds: Active Medications Acetaminophen (Tylenol) 650 mg PO Q4H PRN PRN Reason: Pain MILD(1-3)/Fever >100.5/GARCIA Albuterol/Ipratropium (Duoneb *Not For Prn Use*) 1 ampul IH QIDRT [facility] Last Admin: 08/30/19 10:52 Dose: 1 ampul Documented by: Atorvastatin Calcium (Lipitor) 40 mg PO QHS [facility] Last Admin: 08/29/19 22:27 Dose: 40 mg Documented by: Carvedilol (Coreg) 25 mg PO BID [facility] Last Admin: 08/30/19 09:50 Dose: 25 mg Documented by: Famotidine (Pepcid) 20 mg PO BID [facility] Last Admin: 08/30/19 09:51 Dose: 20 mg Documented by: Furosemide (Lasix) 40 mg IV 0600,1800 [facility] Last Admin: 08/30/19 06:59 Dose: 40 mg Documented by: Hydralazine HCl (Apresoline) 10 mg IV Q2H PRN PRN Reason: Blood Pressure Last Admin: 08/30/19 11:51 Dose: 10 mg Documented by: Hydralazine HCl (Apresoline) 50 mg PO Q8HR [facility] Last Admin: 08/30/19 06:58 Dose: 50 mg Documented by: Hydromorphone HCl (Dilaudid) 1 mg IV Q3H PRN PRN Reason: Pain , Severe (7-10) Last Admin: 08/30/19 07:56 Dose: 1 mg Documented by: Nicardipine HCl 50 mg/ Sodium (Chloride) 250 mls @ 25 mls/hr IV TITR [facility]; Protocol Last Admin: 08/30/19 07:43 Dose: 12.5 mg/hr, 62.5 mls/hr Documented by: Diltiazem HCl (Cardizem/D5w 100mg/100ml) 100 mg in 100 mls @ 5 mls/hr IV TITR [facility]; Protocol Last Titration: 08/29/19 23:25 Dose: 0 mg/hr, 0 mls/hr Documented by: Lisinopril (Zestril) 40 mg PO DAILY [facility] Last Admin: 08/30/19 10:45 Dose: 40 mg Documented by: Nicotine (Habitrol) 14 mg TD DAILY [facility] Last Admin: 08/30/19 10:44 Dose: 14 mg Documented by: Ondansetron HCl (Zofran) 4 mg IV Q8H PRN PRN Reason: Nausea And Vomiting Oxycodone/Acetaminophen (Percocet 5/325) 1 tab PO Q6H PRN PRN Reason: Pain, Moderate (4-6) Last Admin: 08/29/19 21:24 Dose: 1 tab Documented by: Potassium Chloride (K-Dur) 20 meq PO BID [facility] Last Admin: 08/30/19 09:51 Dose: 20 meq Documented by: Sodium Chloride (Sodium Chloride Flush Syringe 10 Ml) 10 ml IV BID [facility] Last Admin: 08/30/19 10:45 Dose: 10 ml Documented by: Sodium Chloride (Sodium Chloride Flush Syringe 10 Ml) 10 ml IV PRN PRN PRN Reason: LINE FLUSH Warfarin Sodium (Coumadin) 7.5 mg PO DAILY@1700 [facility]; Protocol Last Admin: 08/29/19 21:18 Dose: 7.5 mg Documented by: Physical Examination Vital Signs Resp Pulse Ox 30 H 66 L 08/29/19 14:50 08/29/19 14:50 General appearance: no acute distress HEENT: Positive: PERRL Cardiac: Positive: irregularly irregular Lungs: Positive: Decreased Breath Sounds, Wheezes Neuro: Positive: Grossly Intact Extremities: Absent: edema Results 08/30/19 05:34 08/30/19 05:34 Cardiac Enzymes 08/30/19 Range/Units 05:34 AST 19 (5-40) units/L Coagulation 08/29/19 08/30/19 Range/Units 15:26 05:34 PT 13.1 14.3 (12.2-14.9) Sec. INR 1.00 1.12 (0.87-1.13) APTT 28.6 (24.2-36.6) Sec. CBC 08/29/19 08/30/19 Range/Units 15:26 05:34 WBC 8.3 7.5 (4.5-11.0) K/mm3 RBC 4.40 4.24 (3.65-5.03) M/mm3 Hgb 13.9 13.4 (11.8-15.2) gm/dl Hct 42.9 40.5 (35.5-45.6) % Plt Count 154 131 L (140-440) K/mm3 Lymph # 1.2 (1.2-5.4) K/mm3 Antelope # 0.5 (0.0-0.8) K/mm3 Eos # 0.1 (0.0-0.4) K/mm3 Baso # 0.1 (0.0-0.1) K/mm3 Comprehensive Metabolic Panel 08/29/19 08/30/19 Range/Units 15:26 05:34 Sodium 144 144 (137-145) mmol/L Potassium 4.2 4.3 (3.6-5.0) mmol/L Chloride 108.2 H 106.5 (98-107) mmol/L Carbon Dioxide 17 L 24 D (22-30) mmol/L BUN 16 21 H (9-20) mg/dL Creatinine 1.6 H 1.3 (0.8-1.5) mg/dL Glucose 154 H 144 H (75-100) mg/dL Calcium 9.1 9.6 (8.4-10.2) mg/dL AST 19 (5-40) units/L ALT 15 (7-56) units/L Alkaline Phosphatase 73 (35-129) units/L Total Protein 7.6 (6.3-8.2) g/dL Albumin 4.3 (3.9-5) g/dL Assessment and Plan Acute hypoxic respiratory failure Hypertensive urgency Atrial fibrillation initiated on warfarin on IV diltiazem for optimal rate control Hx of Nonischemic cardiomyopathy EF 45-50% by echocardiogram this admission.
[2019-08-30] MEDS ORDERED: oxyCODONE /ACETAMINOPHEN 5-325MG TAB ONE (13:42)
[2019-08-30] MEDS: oxyCODONE /ACETAMINOPHEN 5-325MG TAB PO PRN (13:44)
[2019-08-30] MEDS: WARFARIN 7.5 MG TAB PO SCH (18:22)
[2019-08-31 05:06] LABS: Hemoglobin 13.6 gm/dl (11.8-15.2); Mean Corpuscular HGB Conc 32 % (32-34); Mean Corpuscular Volume 98 fl (84-94); Platelet Count 148 K/mm3 (140-440); Red Cell Distribution Width 15.7 % (13.2-15.2)
[2019-08-31 05:15] LABS: INR 1.04 (0.87-1.13)
[2019-08-31 05:26] LABS: Calcium 9.4 mg/dL (8.4-10.2)
[2019-08-31] MEDS: hydrALAZINE 25 MG TAB PO SCH (05:38)
[2019-08-31] MEDS: FUROSEMIDE 40 MG/4 ML INJ IV SCH (05:38)
[2019-08-31] MEDS: oxyCODONE /ACETAMINOPHEN 5-325MG TAB PO PRN (05:39)
[2019-08-31] MEDS: HYDROmorphone 1 MG/1 ML INJ IV PRN (08:02)
[2019-08-31] MEDS: IPRATROPIUM/ALBUTEROL SULFATE 3 ML AMPUL.NEB IH SCH ×3 (09:08→19:31)
[2019-08-31] MEDS ORDERED: ALBUTEROL 2.5 MG/3 ML NEBU IH PRN (09:14)
[2019-08-31] MEDS: NICOTINE 14 MG/24 HR PATCH TD SCH (10:21)
[2019-08-31] MEDS: CARVEDILOL 25 MG TAB PO SCH ×2 (10:21→21:29)
[2019-08-31] MEDS: FAMOTIDINE 20 MG TAB PO SCH ×2 (10:22→21:29)
[2019-08-31] MEDS: LISINOPRIL 40 MG TAB PO SCH (10:22)
[2019-08-31] MEDS: POTASSIUM CHLORIDE ER 20 MEQ TAB PO SCH ×2 (10:22→21:30)
--- NOTE | 2019-08-31 10:23 | Progress Note ---
Assessment and Plan Acute hypoxic respiratory failure Hypertensive urgency -better Atrial fibrillation noncompliant with oral anticoagulation. Warfarin resumed on coreg for optimal rate control Hx of Nonischemic cardiomyopathy Tobacco abuse EF 45-50% by echocardiogram this admission and severe left atrial dilatation, unchanged from prior echo a year ago. Recommend: Continue medical therapy for mild nonischemic cardiomyopathy, and atrial fibrillation that persists. Subjective Date of service: 08/31/19 Interval history: Patient reports his breathing is better. Afib with a well controlled ventricular rate on telemetry. Objective Vital Signs Temp Pulse Pulse Resp Resp BP BP 08/31/19 09:11 08/31/19 09:08 90 18 08/31/19 08:02 20 08/31/19 07:49 98.3 F 60 18 143/84 08/31/19 05:38 91 H 08/31/19 04:29 98.4 F 91 H 18 137/88 08/30/19 23:26 98.0 F 94 H 18 157/91 08/30/19 22:47 152/91 08/30/19 22:46 153/91 08/30/19 21:20 100 H 16 08/30/19 19:19 98.5 F 100 H 18 153/91 08/30/19 18:55 99 H 35 H 142/89 08/30/19 18:37 97.4 F L 109 H 18 155/70 08/30/19 18:00 108 H 62 16 19 142/89 08/30/19 17:51 108 H 24 155/89 08/30/19 17:41 115 H 23 143/90 08/30/19 17:30 91 H 12 143/90 08/30/19 17:15 87 21 129/68 08/30/19 17:00 92 H 13 139/83 08/30/19 16:45 93 H 12 134/85 08/30/19 16:30 89 14 124/92 08/30/19 16:15 86 16 126/77 08/30/19 16:00 94 H 15 138/75 08/30/19 15:45 101 H 15 135/78 08/30/19 15:30 108 H 18 123/87 08/30/19 15:15 102 H 15 124/83 08/30/19 15:00 97 H 13 146/81 08/30/19 14:45 93 H 14 136/86 08/30/19 14:31 110 H 25 H 136/78 08/30/19 14:15 96 H 26 H 124/55 08/30/19 14:00 89 91 H 20 17 106/63 08/30/19 13:45 93 H 16 133/81 08/30/19 13:30 92 H 21 130/72 08/30/19 13:15 100 H 46 H 148/80 08/30/19 13:01 98 H 21 161/115 08/30/19 12:57 82 18 153/87 08/30/19 12:45 83 12 153/87 08/30/19 12:30 80 11 L 148/80 08/30/19 12:15 82 14 156/84 08/30/19 12:00 78 10 L 143/77 08/30/19 11:51 177/106 08/30/19 11:45 84 8 L 175/106 08/30/19 11:30 86 13 162/95 08/30/19 11:15 82 13 148/79 08/30/19 11:00 85 15 171/81 08/30/19 10:53 92 H 17 08/30/19 10:45 88 17 136/89 08/30/19 10:30 82 15 136/89 Pulse Ox 08/31/19 09:11 99 08/31/19 09:08 08/31/19 08:02 08/31/19 07:49 97 08/31/19 05:38 08/31/19 04:29 99 08/30/19 23:26 98 08/30/19 22:47 08/30/19 22:46 08/30/19 21:20 08/30/19 19:19 97 08/30/19 18:55 08/30/19 18:37 95 08/30/19 18:00 08/30/19 17:51 08/30/19 17:41 08/30/19 17:30 94 08/30/19 17:15 95 08/30/19 17:00 95 08/30/19 16:45 94 08/30/19 16:30 94 08/30/19 16:15 94 08/30/19 16:00 94 08/30/19 15:45 92 08/30/19 15:30 98 08/30/19 15:15 94 08/30/19 15:00 96 08/30/19 14:45 95 08/30/19 14:31 96 08/30/19 14:15 96 08/30/19 14:00 100 08/30/19 13:45 98 08/30/19 13:30 97 08/30/19 13:15 96 08/30/19 13:01 94 08/30/19 12:57 100 08/30/19 12:45 96 08/30/19 12:30 95 08/30/19 12:15 95 08/30/19 12:00 95 08/30/19 11:51 08/30/19 11:45 96 08/30/19 11:30 95 08/30/19 11:15 95 08/30/19 11:00 97 08/30/19 10:53 08/30/19 10:45 95 08/30/19 10:30 95 - Physical Examination General: No Apparent Distress HEENT: Positive: PERRL Neck: Positive: trachea midline Cardiac: Positive: irregularly irregular Lungs: Positive: Decreased Breath Sounds Neuro: Positive: Grossly Intact Extremities: Absent: edema - Labs and Meds Coagulation 08/31/19 Range/Units 04:12 PT 13.5 (12.2-14.9) Sec. INR 1.04 (0.87-1.13) CBC 08/31/19 Range/Units 04:12 WBC 11.1 H (4.5-11.0) K/mm3 RBC 4.40 (3.65-5.03) M/mm3 Hgb 13.6 (11.8-15.2) gm/dl Hct 43.0 (35.5-45.6) % Plt Count 148 (140-440) K/mm3 Comprehensive Metabolic Panel 08/31/19 Range/Units 04:12 Sodium 143 (137-145) mmol/L Potassium 4.5 (3.6-5.0) mmol/L Chloride 100.4 (98-107) mmol/L Carbon Dioxide 27 (22-30) mmol/L BUN 30 H (9-20) mg/dL Creatinine 1.5 (0.8-1.5) mg/dL Glucose 102 H (75-100) mg/dL Calcium 9.4 (8.4-10.2) mg/dL
--- NOTE | 2019-08-31 10:52 | Progress Note ---
Assessment and Plan Assessment and plan: 53-year-old man who presented to the hospital complaining of shortness of breath Past medical history; hypertension, CHF, asthma/COPD, atrial fibrillation, current everyday smoker atrial fibrillation with RVR and hypercoagulable state Patient was nonadherent to his warfarin, it was restarted Preventative health counseling performed for 17 minutes Rate controlled medications, currently on Coreg Nonischemic chronic systolic CHF with severe left atrial dilation, EF of 45% unchanged from previous echo a year ago Optimize cardiac medications per cardiology Hypertensive urgency Optimize BP meds COPD without exacerbation, stable Tobacco abuse/dependence Smoking cessation counseling performed for 10 minutes, nicotine patches when necessary History Interval history: Review of systems Constitutional: No fevers, no malaise, no joint pains CVS: No chest pain, no orthopnea, no pedal edema GI: No abdominal pain, no diarrhea, no vomiting, no constipation Respiratory: No shortness of breath, no wheezing, no coughing Hospitalist Physical - Physical exam Narrative exam: General.: Appears well, no distress, nontoxic HEENT: Moist mucous membranes, extraocular muscles intact, no lymphadenopathy Neck: supple Cardiac: S1-S2 heard Lungs: clear to auscultation bilaterally Abdomen: soft , nontender, nondistended, bowel sounds positive Extremities: no edema clubbing or cyanosis Skin: no rash or lesions Neurologic: no gross focal deficits Psych: calm, and cooperative - Constitutional Vitals: Temp Pulse Resp BP Pulse Ox 98.3 F 106 H 18 143/84 99 08/31/19 07:49 08/31/19 10:22 08/31/19 09:08 08/31/19 10:22 08/31/19 09:11 General appearance: Present: no acute distress Results - Labs CBC & Chem 7: 08/31/19 04:12 08/31/19 04:12 Labs: Laboratory Last Values WBC 11.1 K/mm3 (4.5-11.0) H 08/31/19 04:12 RBC 4.40 M/mm3 (3.65-5.03) 08/31/19 04:12 Hgb 13.6 gm/dl (11.8-15.2) 08/31/19 04:12 Hct 43.0 % (35.5-45.6) 08/31/19 04:12 MCV 98 fl (84-94) H 08/31/19 04:12 MCH 31 pg (28-32) 08/31/19 04:12 MCHC 32 % (32-34) 08/31/19 04:12 RDW 15.7 % (13.2-15.2) H 08/31/19 04:12 Plt Count 148 K/mm3 (140-440) 08/31/19 04:12 Lymph % (Auto) 13.9 % (13.4-35.0) 08/29/19 15:26 Jackson % (Auto) 5.6 % (0.0-7.3) 08/29/19 15:26 Eos % (Auto) 1.0 % (0.0-4.3) 08/29/19 15:26 Baso % (Auto) 1.7 % (0.0-1.8) 08/29/19 15:26 Lymph # 1.2 K/mm3 (1.2-5.4) 08/29/19 15:26 Jackson # 0.5 K/mm3 (0.0-0.8) 08/29/19 15:26 Eos # 0.1 K/mm3 (0.0-0.4) 08/29/19 15:26 Baso # 0.1 K/mm3 (0.0-0.1) 08/29/19 15:26 Add Manual Diff Complete 08/30/19 05:34 Total Counted 100 08/30/19 05:34 Seg Neutrophils % Personnel Records Clerk 08/30/19 05:34 Seg Neuts % (Manual) 89.0 % (40.0-70.0) H 08/30/19 05:34 Band Neutrophils % 0 % 08/30/19 05:34 Lymphocytes % (Manual) 8.0 % (13.4-35.0) L 08/30/19 05:34 Reactive Lymphs % (Man) 0 % 08/30/19 05:34 Monocytes % (Manual) 2.0 % (0.0-7.3) 08/30/19 05:34 Eosinophils % (Manual) 0 % (0.0-4.3) 08/30/19 05:34 Basophils % (Manual) 1.0 % (0.0-1.8) 08/30/19 05:34 Metamyelocytes % 0 % 08/30/19 05:34 Myelocytes % 0 % 08/30/19 05:34 Promyelocytes % 0 % 08/30/19 05:34 Blast Cells % 0 % 08/30/19 05:34 Nucleated RBC % Not Reportable 08/30/19 05:34 Seg Neutrophils # 6.5 K/mm3 (1.8-7.7) 08/29/19 15:26 Seg Neutrophils # Man 6.7 K/mm3 (1.8-7.7) 08/30/19 05:34 Band Neutrophils # 0.0 K/mm3 08/30/19 05:34 Lymphocytes # (Manual) 0.6 K/mm3 (1.2-5.4) L 08/30/19 05:34 Abs React Lymphs (Man) 0.0 K/mm3 08/30/19 05:34 Monocytes # (Manual) 0.2 K/mm3 (0.0-0.8) 08/30/19 05:34 Eosinophils # (Manual) 0.0 K/mm3 (0.0-0.4) 08/30/19 05:34 Basophils # (Manual) 0.1 K/mm3 (0.0-0.1) 08/30/19 05:34 Metamyelocytes # 0.0 K/mm3 08/30/19 05:34 Myelocytes # 0.0 K/mm3 08/30/19 05:34 Promyelocytes # 0.0 K/mm3 08/30/19 05:34 Blast Cells # 0.0 K/mm3 08/30/19 05:34 WBC Morphology Not Reportable 08/30/19 05:34 Hypersegmented Neuts Not Reportable 08/30/19 05:34 Hyposegmented Neuts Not Reportable 08/30/19 05:34 Hypogranular Neuts Not Reportable 08/30/19 05:34 Smudge Cells Not Reportable 08/30/19 05:34 Toxic Granulation Not Reportable 08/30/19 05:34 Toxic Vacuolation Not Reportable 08/30/19 05:34 Dohle Bodies Not Reportable 08/30/19 05:34 Pelger-Huet Anomaly Not Reportable 08/30/19 05:34 Kyara Rods Not Reportable 08/30/19 05:34 Platelet Estimate Consistent w auto 08/30/19 05:34 Clumped Platelets Not Reportable 08/30/19 05:34 Plt Clumps, EDTA Not Reportable 08/30/19 05:34 Large Platelets Few 08/30/19 05:34 Giant Platelets Not Reportable 08/30/19 05:34 Platelet Satelliting Not Reportable 08/30/19 05:34 Plt Morphology Comment Not Reportable 08/30/19 05:34 RBC Morphology Not Reportable 08/30/19 05:34 Dimorphic RBCs Not Reportable 08/30/19 05:34 Polychromasia Not Reportable 08/30/19 05:34 Hypochromasia Not Reportable 08/30/19 05:34 Poikilocytosis Not Reportable 08/30/19 05:34 Anisocytosis 1+ 08/30/19 05:34 Microcytosis Few 08/30/19 05:34 Macrocytosis Few 08/30/19 05:34 Spherocytes Not Reportable 08/30/19 05:34 Pappenheimer Bodies Not Reportable 08/30/19 05:34 Sickle Cells Not Reportable 08/30/19 05:34 Target Cells Not Reportable 08/30/19 05:34 Tear Drop Cells Not Reportable 08/30/19 05:34 Ovalocytes Few 08/30/19 05:34 Stomatocytes Rare 08/30/19 05:34 Helmet Cells Not Reportable 08/30/19 05:34 [place] Bodies Not Reportable 08/30/19 05:34 [place] Rings Not Reportable 08/30/19 05:34 Kristyn Cells Not Reportable 08/30/19 05:34 Bite Cells Not Reportable 08/30/19 05:34 Crenated Cell Not Reportable 08/30/19 05:34 Elliptocytes Not Reportable 08/30/19 05:34 Acanthocytes (Spur) Not Reportable 08/30/19 05:34 Rouleaux Not Reportable 08/30/19 05:34 Hemoglobin C Crystals Not Reportable 08/30/19 05:34 Schistocytes Not Reportable 08/30/19 05:34 Malaria parasites Not Reportable 08/30/19 05:34 Aman Bodies Not Reportable 08/30/19 05:34 Hem Pathologist Commnt No 08/30/19 05:34 PT 13.5 Sec. (12.2-14.9) 08/31/19 04:12 INR 1.04 (0.87-1.13) 08/31/19 04:12 APTT 28.6 Sec. (24.2-36.6) 08/29/19 15:26 Sodium 143 mmol/L (137-145) 08/31/19 04:12 Potassium 4.5 mmol/L (3.6-5.0) 08/31/19 04:12 Chloride 100.4 mmol/L (98-107) 08/31/19 04:12 Carbon Dioxide 27 mmol/L (22-30) 08/31/19 04:12 Anion Gap 20 mmol/L 08/31/19 04:12 BUN 30 mg/dL (9-20) H 08/31/19 04:12 Creatinine 1.5 mg/dL (0.8-1.5) 08/31/19 04:12 Estimated GFR 60 ml/min 08/31/19 04:12 BUN/Creatinine Ratio 20 % 08/31/19 04:12 Glucose 102 mg/dL (75-100) H 08/31/19 04:12 Hemoglobin A1c 5.2 % (4-6) 08/29/19 15:26 Lactic Acid 1.50 mmol/L (0.7-2.0) 08/29/19 16:49 Calcium 9.4 mg/dL (8.4-10.2) 08/31/19 04:12 Magnesium 2.10 mg/dL (1.7-2.3) 08/29/19 15:26 Total Bilirubin 0.60 mg/dL (0.1-1.2) 08/30/19 05:34 AST 19 units/L (5-40) 08/30/19 05:34 ALT 15 units/L (7-56) 08/30/19 05:34 Alkaline Phosphatase 73 units/L (35-129) 08/30/19 05:34 Troponin T < 0.010 ng/mL (0.00-0.029) 08/29/19 15:26 NT-Pro-B Natriuret Pep 1693 pg/mL (0-900) H 08/29/19 15:26 Total Protein 7.6 g/dL (6.3-8.2) 08/30/19 05:34 Albumin 4.3 g/dL (3.9-5) 08/30/19 05:34 Albumin/Globulin Ratio 1.3 % 08/30/19 05:34 Active Medications - Current Medications Current Medications: Generic Name Dose Route Start Last Admin Trade Name Freq PRN Reason Stop Dose Admin Acetaminophen 650 mg 08/29/19 19:54 Tylenol PO Q4H PRN Pain MILD(1-3)/Fever >100.5/GARCIA Albuterol 2.5 mg 08/31/19 09:14 Proventil IH Q4HRT PRN Shortness Of Breath Albuterol/Ipratropium 1 ampul 08/31/19 14:00 Duoneb *Not For Prn Use* IH TIDRT REENA Atorvastatin Calcium 40 mg 08/29/19 22:00 08/30/19 22:46 Lipitor PO 40 mg QHS REENA Administration Carvedilol 25 mg 08/29/19 22:00 08/31/19 10:21 Coreg PO 25 mg BID REENA Administration Famotidine 20 mg 08/29/19 22:00 08/31/19 10:22 Pepcid PO 20 mg BID REENA Administration Furosemide 40 mg 08/30/19 06:00 08/31/19 05:38 Lasix IV 40 mg 0600,1800 REENA Administration Hydralazine HCl 10 mg 08/29/19 19:34 08/30/19 11:51 Apresoline IV 10 mg Q2H PRN Administration Blood Pressure Hydralazine HCl 50 mg 08/29/19 22:00 08/31/19 05:38 Apresoline PO 50 mg Q8HR REENA Administration Hydromorphone HCl 1 mg 08/29/19 19:54 08/31/19 08:02 Dilaudid IV 1 mg Q3H PRN Administration Pain , Severe (7-10) Lisinopril 40 mg 08/29/19 21:00 08/31/19 10:22 Zestril PO 40 mg DAILY REENA Administration Nicotine 14 mg 08/29/19 21:00 08/31/19 10:21 Habitrol TD 14 mg DAILY REENA Administration Ondansetron HCl 4 mg 08/29/19 20:17 Zofran IV Q8H PRN Nausea And Vomiting Oxycodone/Acetaminophen 1 tab 08/29/19 19:54 08/31/19 05:39 Percocet 5/325 PO 1 tab Q6H PRN Administration Pain, Moderate (4-6) Potassium Chloride 20 meq 08/29/19 22:00 08/31/19 10:22 K-Dur PO 20 meq BID REENA Administration Sodium Chloride 10 ml 08/29/19 22:00 08/31/19 10:22 Sodium Chloride Flush Syringe 10 Ml IV 10 ml BID REENA Administration Sodium Chloride 10 ml 08/29/19 19:54 08/31/19 05:41 Sodium Chloride Flush Syringe 10 Ml IV 10 ml PRN PRN Administration LINE FLUSH Warfarin Sodium 10 mg 08/31/19 17:00 Coumadin PO DAILY@1700 [facility] Protocol Nutrition/Malnutrition Assess - Dietary Evaluation Nutrition/Malnutrition Findings: Nutrition Notes Start: 08/30/19 11:59 Freq: Status: Active Protocol: Document 08/30/19 11:59 LM (Rec: 08/30/19 12:07 LM [email or web address]) Nutrition Notes Need for Assessment generated from: Education Initial or Follow up Brief Note Current Diagnosis COPD,Hypertension,Heart Failure,Hyperlipidemia Other Pertinent Diagnosis Nicotine dependence Current Diet Cardiac Labs/Tests BUN 21 BG 144 Pertinent Medications Coumadin Lasix Height 6 ft 2 in Weight 122.47 kg [place] Body Weight (kg) 86.36 BMI 34.7 Weight Status Obese Subjective/Other Information Screen for DNI. Pt in ED. Burn Absent Trauma Absent Nutrition Intervention Follow-Up By: 08/31/19 Additional Comments F/U for Coumidin education needs
[2019-08-31] MEDS: NIFEdipine XL 30 MG TAB PO SCH (14:14)
[2019-08-31] MEDS ORDERED: WARFARIN 10 MG TAB PO SCH (17:00)
[2019-08-31] MEDS: BUTALB/ACETAMINOPHEN/CAFFEINE TAB PO PRN (19:17)
[2019-09-01] MEDS: BUTALB/ACETAMINOPHEN/CAFFEINE TAB PO PRN (04:38)
[2019-09-01 05:37] LABS: INR 1.23 (0.87-1.13)
--- NOTE | 2019-09-01 09:00 | Progress Note ---
<BERTA VO - Last Filed: 09/01/19 08:59> Assessment and Plan Acute hypoxic respiratory failure Hypertensive urgency -better Atrial fibrillation noncompliant with oral anticoagulation. Warfarin resumed on coreg for optimal rate control Hx of Nonischemic cardiomyopathy Tobacco abuse EF 45-50% by echocardiogram this admission and severe left atrial dilatation, unchanged from prior echo a year ago. Recommend: Continue medical therapy for mild nonischemic cardiomyopathy, and atrial fibrillation that persists. Stable cardiac shin. Subjective Date of service: 09/01/19 Interval history: No cardiac complaints. Afib with a well controlled ventricular rate on telemetry. Objective Vital Signs Temp Pulse Pulse Pulse Pulse Resp Resp 09/01/19 05:00 67 09/01/19 04:38 20 09/01/19 03:53 98.5 F 60 18 08/31/19 23:33 98.4 F 81 18 08/31/19 21:29 104 H 08/31/19 21:00 78 08/31/19 19:42 93 H 18 08/31/19 19:28 98.1 F 66 18 08/31/19 19:17 20 08/31/19 16:51 67 08/31/19 15:08 95 H 18 08/31/19 13:00 83 08/31/19 12:27 97 H 08/31/19 10:22 106 H 08/31/19 10:21 106 H 08/31/19 09:11 08/31/19 09:08 90 18 08/31/19 09:00 100 H 106 H 20 BP Pulse Ox 09/01/19 05:00 09/01/19 04:38 09/01/19 03:53 153/86 98 08/31/19 23:33 139/86 100 08/31/19 21:29 140/103 08/31/19 21:00 08/31/19 19:42 08/31/19 19:28 140/103 98 08/31/19 19:17 08/31/19 16:51 141/86 98 08/31/19 15:08 08/31/19 13:00 08/31/19 12:27 126/92 96 08/31/19 10:22 143/84 08/31/19 10:21 143/84 08/31/19 09:11 99 08/31/19 09:08 08/31/19 09:00 99 - Physical Examination General: No Apparent Distress HEENT: Positive: PERRL Neck: Positive: trachea midline Cardiac: Positive: irregularly irregular Lungs: Positive: Decreased Breath Sounds Neuro: Positive: Grossly Intact Extremities: Absent: edema - Labs and Meds Coagulation 09/01/19 Range/Units 04:44 PT 15.4 H (12.2-14.9) Sec. INR 1.23 H (0.87-1.13) <HEATHER SEGURA - Last Filed: 09/01/19 09:43> Assessment and Plan I have seen and evaluated the patient and agree with the assessment and plan. Objective Vital Signs Temp Pulse Pulse Resp Resp BP Pulse Ox 09/01/19 05:00 67 09/01/19 04:38 20 09/01/19 03:53 98.5 F 60 18 153/86 98 08/31/19 23:33 98.4 F 81 18 139/86 100 08/31/19 21:29 104 H 140/103 08/31/19 21:00 78 08/31/19 19:42 93 H 18 08/31/19 19:28 98.1 F 66 18 140/103 98 08/31/19 19:17 20 08/31/19 16:51 67 141/86 98 08/31/19 15:08 95 H 18 08/31/19 13:00 83 08/31/19 12:27 97 H 126/92 96 08/31/19 10:22 106 H 143/84 08/31/19 10:21 106 H 143/84 - Labs and Meds Coagulation 09/01/19 Range/Units 04:44 PT 15.4 H (12.2-14.9) Sec. INR 1.23 H (0.87-1.13)
[2019-09-01] MEDS ORDERED: CHLORTHALIDONE 25 MG TAB PO SCH (10:00)
[2019-09-01] MEDS: IPRATROPIUM/ALBUTEROL SULFATE 3 ML AMPUL.NEB IH SCH ×2 (10:09→15:17)
[2019-09-01 10:25] VITALS: BP 151/98
[2019-09-01] MEDS: NICOTINE 14 MG/24 HR PATCH TD SCH (10:32)
[2019-09-01] MEDS: FAMOTIDINE 20 MG TAB PO SCH (10:33)
[2019-09-01] MEDS: CARVEDILOL 25 MG TAB PO SCH (10:33)
[2019-09-01] MEDS: POTASSIUM CHLORIDE ER 20 MEQ TAB PO SCH (10:33)
[2019-09-01] MEDS: NIFEdipine XL 30 MG TAB PO SCH (10:33)
[2019-09-01] MEDS: LISINOPRIL 40 MG TAB PO SCH (10:34)
--- NOTE | 2019-09-01 10:36 | Discharge Summary ---
Providers - Providers Date of Admission: 08/29/19 17:39 Attending physician: ALEXANDER JEFFERSON MD 08/29/19 19:54 Consult to Physician [CONS] Routine Comment: Consulting Provider: NAPOLEON GRAY Physician Instructions: Reason For Exam: CHF exacerbation Primary care physician: DIRECTOR MEDIA Hospitalization Condition: Stable Hospital course: 53-year-old man who presented to the hospital complaining of shortness of breath Past medical history; hypertension, CHF, asthma/COPD, atrial fibrillation, current everyday smoker atrial fibrillation with RVR and hypercoagulable state Patient was nonadherent to his warfarin, it was restarted Preventative health counseling performed for 17 minutes Rate controlled medications, currently on Coreg Nonischemic chronic systolic CHF with severe left atrial dilation, EF of 45% unchanged from previous echo a year ago Optimize cardiac medications per cardiology Hypertensive urgency Optimize BP meds COPD without exacerbation, stable Tobacco abuse/dependence Smoking cessation counseling performed for 10 minutes, nicotine patches when necessary Medical nonadherence Patient was counseled Disposition: TO HOME OR SELFCARE Time spent for discharge: 33 mins Core Measure Documentation - Palliative Care Palliative Care/ Comfort Measures: Not Applicable - Core Measures Any of the following diagnoses?: none Exam - Constitutional Vitals: Temp Pulse Resp BP Pulse Ox 98.5 F 75 20 151/98 97 09/01/19 03:53 09/01/19 09:27 09/01/19 04:38 09/01/19 09:27 09/01/19 09:27 General appearance: Present: no acute distress, well-nourished - EENT Eyes: Present: PERRL ENT: hearing intact, clear oral mucosa - Neck Neck: Present: supple, normal ROM - Respiratory Respiratory effort: normal Respiratory: bilateral: CTA - Cardiovascular Heart Sounds: Present: S1 & S2. Absent: rub, click - Extremities Extremities: pulses symmetrical, No edema Peripheral Pulses: within normal limits - Abdominal General gastrointestinal: Present: soft, non-tender, non-distended, normal bowel sounds Male genitourinary: Present: normal - Integumentary Integumentary: Present: clear, warm, dry - Musculoskeletal Musculoskeletal: gait normal, strength equal bilaterally - Psychiatric Psychiatric: appropriate mood/affect, intact judgment & insight - Neurologic Neurologic: CNII-XII intact, moves all extremities Plan Additional Instructions: Please follow-up with your primary care doctor or oyster grower within 2 to 3 days of discharge for INR check. Follow up with: PRIMARY CARE, [Primary Care Provider] - 3-5 Days Forms: Warfarin Discharge Instruction Prescriptions: AtorvaSTATin [Lipitor] 40 mg PO QHS #30 tablet Carvedilol [Coreg] 25 mg PO BID #60 tablet Warfarin [Coumadin] 10 mg PO DAILY@1700 #7 tablet Butalb/Acetamin/Caff 50-325-40 [Fioricet 50-325-40] 2 tab PO Q4H PRN #20 tablet PRN Reason: Headache Nicotine [Habitrol] 14 mg TD DAILY #30 patch Potassium Chloride [K-Dur] 20 meq PO BID #60 tablet NIFEdipine XL [Procardia Xl] 30 mg PO QDAY #30 tablet Chlorthalidone [Thalitone] 25 mg PO QDAY #30 tablet Lisinopril [Zestril TAB] 40 mg PO DAILY #30 tablet
== END 2019-09-01 16:28 | disposition home or self-care (01) | DRG 291 ==
LOC: ED 14:49 → 4A 17:39 → CC1 21:42 → 4A 08-30 17:15
PROVIDERS: ADMIT Internal Medicine; ATTEND Internal Medicine
DX: I11.0 Hypertensive heart disease with heart failure (principal); J96.01 Acute respiratory failure with hypoxia; D68.59 Other primary thrombophilia; I16.1 Hypertensive emergency; I50.43 Acute on chronic combined systolic (congestive) and diastolic (congestive) heart failure; I42.8 Other cardiomyopathies; I48.91 Unspecified atrial fibrillation; J44.9 Chronic obstructive pulmonary disease, unspecified; E66.9 Obesity, unspecified; F17.210 Nicotine dependence, cigarettes, uncomplicated; Z91.14 Patient's other noncompliance with medication regimen; Z71.6 Tobacco abuse counseling; Z68.34 Body mass index [BMI] 34.0-34.9, adult; Z79.899 Other long term (current) drug therapy; Z82.49 Family history of ischemic heart disease and other diseases of the circulatory system
CPT/HCPCS: 36415; 71045; 80048; 80053; 82140; 83036; 83735; 83880; 84484; 85007; 85025; 85027; 85610; 85730; 87040; 93005; 93010; 93306; 94640; 94644; 96365; 96375; G0378; A9270-GY; J0360; J0456; J0696; J1170; J1650; J1940; J2930; J7050